=== PATIENT | female | born 1990 | race Caucasian/White ===

== ENCOUNTER 2020-06-02 08:00 | Outpatient (CLI) | payer OTHER ==
[2020-06-02 21:42] LABS: TRICHOMONAS VAGINALIS DNA NEGATIVE (NEGATIVE)
== END 2020-06-02 23:59 | disposition home or self-care (01) ==
LOC: LAB.R 08:00
PROVIDERS: ATTEND Obstetrics & Gynecology
DX: Z11.3 Encounter for screening for infections with a predominantly sexual mode of transmission (principal)
CPT/HCPCS: 87491; 87591; 87661

== ENCOUNTER 2020-06-12 14:55 | Outpatient (CLI) | payer OTHER ==
--- NOTE | 2020-06-12 17:04 | Ultrasound Report ---
PROCEDURE: OB F/U or Repeat INDICATIONS: SCREENING FOR MACROSOMIA OUTSIDE/PRIOR DATING DATA: Last menstrual period (LMP): 10/13/2019. LMP-based estimated date of delivery (MELISSA): 07/19/2020. First dating scan (date and location): 01/03/2020. Estimated date of delivery (MELISSA) given by the ordering provider.: 07/20/2020. This is based on IVF da ting. TECHNIQUE: Real-time scanning was performed of the fetus, with image documentation and biometric measurements. COMPARISON: OB ultrasound report only dated 03/01/2020, FINDINGS: General: A single living intrauterine gestation is present. Presentation: Vertex Placenta: Placental position is fundal, without previa. Amniotic fluid index: 29.6 cm, 99th percentile for gestational age. Largest pocket 9.2 cm. heart rate: 133 beats per minute. Maternal cervical canal: 5 cm long; normal length is 2.5 cm or more. biometrics: Biparietal diameter: 8.7 cm 35 weeks 2 days Head circumference: 31.0 cm 34 weeks 5 days Abdominal circumference: 33.1 cm 37 weeks 0 days Femur length: 6.4 cm 33 weeks 1 day Estimated gestational age from initial scan: 34 weeks 4 days Composite gestational age from present scan: 35 weeks 0 days Estimated weight and percentile: 2735 g 77th percentile Measurement variability in biometric dating: +/- 10 days from 12-20 weeks gestation, +/- 2 weeks from 20-30 weeks gestation, +/- 3 weeks at 30 weeks gestation or more. Other: Not applicable. IMPRESSION: 1. Single live and interpreted with ultrasound gestational age today of 35 weeks 0 days compared to 3 4 weeks 4 days based on prior exams. 2. CARMEN is at the 99th percentile. 3. weight is noted at the 77th percentile. Reviewed by: Fifi Dowling MD on 06/12/2020 5:03 PM PST Approved by: Fifi Dowling MD on 06/12/2020 5:03 PM PST Station ID: [id number]
== END 2020-06-12 14:56 | disposition home or self-care (01) ==
LOC: DI 14:55
PROVIDERS: ATTEND Obstetrics & Gynecology
DX: Z36.88 Encounter for antenatal screening for fetal macrosomia (principal)

== ENCOUNTER 2020-06-22 07:00 | Outpatient (CLI) | payer OTHER | END 2020-06-22 23:59 | disposition home or self-care (01) | LOC: LAB.R 07:00 | PROVIDERS: ATTEND Obstetrics & Gynecology | DX: Z36.85 Encounter for antenatal screening for Streptococcus B (principal) | CPT/HCPCS: 87797 ==

== ENCOUNTER 2020-07-06 08:00 | Outpatient (CLI) | payer OTHER ==
[2020-07-06 21:17] LABS: TRICHOMONAS VAGINALIS DNA NEGATIVE (NEGATIVE)
== END 2020-07-06 23:59 | disposition home or self-care (01) ==
LOC: LAB.R 08:00
PROVIDERS: ATTEND Obstetrics & Gynecology
DX: Z11.3 Encounter for screening for infections with a predominantly sexual mode of transmission (principal)
CPT/HCPCS: 87491; 87591; 87661

== ENCOUNTER 2020-07-09 13:26 | Inpatient (IN) | payer OTHER ==
[2020-07-09 14:15] LABS: RUPTURE OF MEMBRANES PLUS POSITIVE (NEGATIVE)
[2020-07-09] MEDS ORDERED: miSOPROStoL 200 MCG TABLET BC PRN (15:15)
[2020-07-09] MEDS ORDERED: OXYTOCIN/SODIUM CHLORIDE 500 ML IV PRN (15:15)
[2020-07-09] MEDS ORDERED: OXYTOCIN 10 UNIT/ML VIAL IM PRN (15:15)
[2020-07-09] MEDS ORDERED: LIDOCAINE-MPF 1% 30 ML VIAL ID PRN (15:15)
[2020-07-09] MEDS ORDERED: CARBOPROST TROMETHAMINE 250 MCG/ML AMP IM PRN (15:15)
[2020-07-09] MEDS ORDERED: AMPICILLIN 2 GM in SODIUM CHLORIDE 0.9% MINIBAG 100 ML IV ONE (15:15)
[2020-07-09] MEDS ORDERED: TRANEXAMIC ACID IN NACL 1,000 MG/100 ML BAG IV PRN (15:15)
[2020-07-09] MEDS ORDERED: METHYLERGONOVINE 0.2 MG/ML VIAL IM PRN (15:15)
[2020-07-09] MEDS ORDERED: CITRIC ACID/SODIUM CITRATE 15 ML UDC PO ONE (15:21)
[2020-07-09] MEDS ORDERED: ceFAZolin 2 GM/50 ML 2 GM/50 ML BAG IV SCH (15:22)
[2020-07-09] MEDS ORDERED: HYDROmorphone 0.5 MG/0.5 ML SYRINGE IVP PRN (15:23)
[2020-07-09] MEDS ORDERED: ATROPINE ABBOJECT 1 MG/10 ML SYRINGE IVP PRN (15:23)
[2020-07-09] MEDS ORDERED: NALOXONE 0.4 MG/ML VIAL IVP PRN (15:23)
[2020-07-09] MEDS ORDERED: ONDANSETRON 4 MG/2 ML VIAL IVP PRN (15:23)
[2020-07-09] MEDS ORDERED: ePHEDrine 50 MG/ML VIAL IVP PRN (15:23)
[2020-07-09] MEDS ORDERED: fentaNYL 100 MCG/2 ML VIAL IVP PRN (15:23)
[2020-07-09] MEDS ORDERED: MORPHINE 2 MG/ML CARPUJECT IVP PRN (15:23)
--- NOTE | 2020-07-09 15:23 | ANESTHESIA ---
Pre-Anesthesia VS, & Labs - Diagnosis previous csection - Procedure csection Vital Signs: Temp Pulse Resp BP Pulse Ox 37.1 C 98 16 110/73 100 07/09/20 14:58 07/09/20 14:58 07/09/20 14:58 07/09/20 14:58 07/09/20 13:30 Height: 5 ft 5 in Weight (kg): 88.451 kg Body Mass Index: 32.4 BMI Classification: Obese - NPO Other (PBJ sandwich at 1300) - Is Patient ?: Yes Home Medications and Allergies Letrozole 12/11/15 Pnv95/Iron Fum/Folic Acid [ Caplet] 12/11/15 Sertraline HCl [Zoloft] 100 mg PO DAILY 12/11/15 Allergies/Adverse Reactions: Allergies Allergy/AdvReac Type Severity Reaction Status Date / Time No Known Drug Allergies Allergy Verified 12/11/15 18:02 Anes History & Medical History - Anesthetic History Family history of Anesthesia Complications: Denies Family history of Malignant Hyperthermia: Denies - Medical History Cardiovascular: reports: None Pulmonary: reports: None Gastrointestinal: reports: None Urinary: reports: None Neuro: reports: None Musculoskeletal: reports: None Blood Disorders: reports: None Skin: reports: None Smoking Status: Never smoker Psychosocial: reports: No issues indicated Exam General: Alert, Oriented x3, Cooperative Dental: WNL Mouth Openin Fingerbreadth Neck Mobility: Normal Mallampati classification: II Thyromental Distance: 4-6 cm Respiratory: Lungs clear Cardiovascular: Regular rate Abdomen: Normal bowel sounds Extremities: No clubbing Neurological: Normal gait Mental/Cognitive Status: Alert/Oriented X3 Cognitive Status: Within normal limits Plan Anesthesia Type: Spinal, Transverse Abdominis Plane (TAP) Block Regional Block: Per Surgeon's request for Post Op pain control Consent for Procedure(s) Verified and Reviewed: Yes Code Status: Attempt Resuscitation ASA classification: 2-Mild systemic disease Is this case an emergency?: Yes
[2020-07-09 15:29] LABS: BASOPHILS % (AUTO) 0.3 %; EOSINOPHILS # (AUTO) 0.3 10^3/uL (0.0-0.7); EOSINOPHILS % (AUTO) 2.9 %; HCT - HEMATOCRIT 38.6 % (37.0-47.0); HGB - HEMOGLOBIN 12.8 g/dL (12.0-16.0); LYMPHOCYTES % (AUTO) 18.2 %; MEAN CORPUSCULAR HEMOGLOBIN 29.5 pg (27.0-31.0); MEAN CORPUSCULAR HGB CONC 33.2 g/dL (32.0-36.0); MEAN CORPUSCULAR VOLUME 88.9 fL (81.0-99.0); MONOCYTES # (AUTO) 0.8 10^3/uL (0.0-1.0); MONOCYTES % (AUTO) 7.2 %; NEUTROPHILS # (AUTO) 7.8 10^3/uL (1.5-6.6); PLT - PLATELET COUNT 172 10^3/uL (130-450); RED BLOOD COUNT 4.34 10^6/uL (4.20-5.40); RED CELL DISTRIBUTION WIDTH 13.4 % (12.0-15.0); WHITE BLOOD COUNT 11.1 x10^3/uL (4.8-10.8)
[2020-07-09] MEDS ORDERED: fentaNYL 100 MCG/2 ML VIAL ONE (15:39)
[2020-07-09] MEDS ORDERED: ONDANSETRON 4 MG/2 ML VIAL ONE (15:40)
[2020-07-09] MEDS ORDERED: ROPIVACAINE 0.5% PF 20 ML AMPULE ONE (15:40)
[2020-07-09] MEDS ORDERED: OXYTOCIN 10 UNIT/ML VIAL ONE (15:40)
[2020-07-09] MEDS ORDERED: SODIUM CHLORIDE 0.9% 20 ML ONE (15:40)
[2020-07-09] MEDS ORDERED: DEXAMETHASONE 4 MG/ML VIAL ONE (15:40)
[2020-07-09] MEDS ORDERED: ceFAZolin 1 GM VIAL ONE (15:40)
[2020-07-09] MEDS ORDERED: LACTATED RINGERS 1,000 ML IV SCH ×3 (16:00→18:00)
[2020-07-09] MEDS ORDERED: SODIUM CHLORIDE 0.9% 10 ML ONE (17:19)
[2020-07-09] MEDS ORDERED: SODIUM CHLORIDE FLUSH 0.9% 10 ML SYRINGE IVP PRN (17:45)
[2020-07-09] MEDS ORDERED: diphenhydrAMINE 25 MG CAPSULE PO PRN (17:45)
--- NOTE | 2020-07-09 17:51 | OPERATIVE REPORT ---
Operative Report - General Admit Date: 07/09/20 Procedure Date: 07/09/20 Planned Procedure: RLTC/S Pre-Op Diagnosis: PRIOR LTC/S 38 WEEKS, SROM Procedure Performed: RLTC/S Post Op Diagnosis: PRIOR LTC/S, 38 WEEKS, SROM, MILD MECH, PRESENTING CORD - Procedure Note Primary Surgeon: Nawaf Marte MD Secondary Surgeon: Mayte SHEIKH Anesthesia Provider: Verenice Fortune CRNA Anesthesia Technique: Spinal Pathology: Placenta IV Fluids (mL): 2,000 Estimated Blood Loss (mL): 1,000 Urine Output (mL): 300
[2020-07-09] MEDS ORDERED: LACTATED RINGERS 1,000 ML IV ONE (17:55)
--- NOTE | 2020-07-09 18:17 | ANESTHESIA POST OP EVALUATION ---
Anesthesia Post Eval - Post Anesthesia Eval Vitals: Last Vital Signs Temp 36.5 C 07/09/20 18:15 Pulse 77 07/09/20 18:15 Resp 15 07/09/20 18:15 BP 119/102 H 07/09/20 18:15 Pulse Ox 100 07/09/20 18:15 CV Function Including HR & BP: positive: Stable Pain Control: positive: Satisfactory Nausea & Vomiting: positive: Negative Mental Status: positive: Baseline Respiratory Status: Airway Patent Hydration Status: Satisfactory Anesthesia Complications: positive: None
[2020-07-09] MEDS: KETOROLAC 30 MG/ML VIAL IVP SCH (19:06)
--- NOTE | 2020-07-09 19:36 | PREOP HISTORY & PHYSICAL ---
DATE OF SERVICE: 07/09/2020 Physician: Nawaf Marte MD IDENTIFICATION: The patient is a 30-year-old G5, P1, SAB 3 female whose EDC is 07/20/2020; this was determined by early ultrasound, as well as IVF. CHIEF COMPLAINT: Spontaneous rupture of membranes. HISTORY OF PRESENT ILLNESS: The patient was at home when she spontaneously ruptured roughly 1 hour a go. Amniotic fluid was clear. She presented to labor and delivery, at which time a ROM Plus was per formed, which was noted to be positive. Of significance is the fact that she is GBS positive. She i s having contractions, but does not appear to be laboring well. Her first section was perfo rmed for what appears to be nonreassuring heart tones. This is an IVF . She has had 3 p revious IVF miscarriages. Her OB care, started at [facility]. She transferred to us at 33 weeks EGA. The remainder of her course has been unremarkable. She is scheduled for th is coming week. LABORATORY STUDIES: The patient's 50 gram Glucola was 121. She is A positive. Her rubella is immune . Her STI check was positive at one time and had a test of cure, which was noted to be negative. Sh e shows no evidence of any other STIs. She is group B strep positive. PAST MEDICAL HISTORY: Remarkable for anxiety, depression, and endometriosis as well as infertility. PAST SURGICAL HISTORY: section in 2018. Dilatation and curettage and laparoscopy in 2016. SOCIAL HISTORY: The patient works as a school resource officer. She is to an active duty [place] person . FAMILY HISTORY: Positive for diabetes, hypertension, alcoholism, and CVA as well as cancer. ALLERGIES: NONE KNOWN. CURRENT MEDICATIONS: vitamins. PHYSICAL EXAMINATION GENERAL: The patient is a well-developed, well-nourished female. She is in no acute distress at thi s time. VITAL SIGNS: On admission shows her blood pressure to be 110/73, respirations 16, and temperature 37 .1. HEENT: Pupils equally round. Extraocular muscles intact. NECK: Thyroid is not palpably enlarged. HEART: Regular rate and rhythm without murmurs. LUNGS: Lung cohen are clear without rales or wheezes. BACK: No spinal or CVA tenderness noted. ABDOMEN: Gravid, nontender. She is having periodic contractions with reassuring heart test. She has had a ROM Plus which was positive. PELVIC: Intentionally deferred to decrease the risk of introducing in a group B strep to the amnioti c fluid. EXTREMITIES: DTRs are +1. IMPRESSION 1. A 30-year-old in vitro fertilization (IVF) fetus at 38 weeks 3 days. 2. Spontaneous rupture of membranes. 3. Previous section. PLAN: Will perform repeat low-transverse section. Will administer ampicillin to decrease t he risk of GBS transplant to the . Will also administer Ancef preoperatively. Risks and benef its have been explained to the patient including those, but not limited to bleeding, infection, injur y to pelvic organs, which include the uterus, tubes, ovaries, bowel, bladder and ureters. She is de re of the potential for DVT with PE as well as postoperative adhesions, which could cause pain, bowel obstruction, and infertility. TD: 07/09/2020 15:30
[2020-07-09] MEDS: ACETAMINOPHEN 500 MG TABLET PO SCH (19:37)
[2020-07-09] MEDS: oxyCODONE 5 MG TABLET PO PRN ×3 (19:38→23:43)
[2020-07-09] MEDS: DOCUSATE SODIUM 100 MG CAPSULE PO SCH (20:25)
[2020-07-09] MEDS: HYDROmorphone 1 MG/ML CARPUJECT IVP PRN ×2 (21:11→23:07)
--- NOTE | 2020-07-09 22:18 | PROVIDER PROGRESS NOTE ---
Subjective - Prog Note Date Prog Note Date: 07/09/20 Prog Note Time: 22:14 - Subjective Pt reports feeling: Improved (Pt C/O significant sharp right incisionsl pain. hes taken 10 mg oxy codone and IV dliudid.) Objective - Vital Signs/Intake & Output Reviewed Vital Signs: Yes Vital Signs: Vital Signs x48h Temp Pulse Pulse Resp BP BP Pulse Ox 07/09/20 21:33 77 18 124/54 L 100 07/09/20 20:34 36.9 C 70 18 121/73 100 07/09/20 19:30 36.4 C L 61 18 91/54 L 100 07/09/20 19:15 36.4 C L 69 18 119/62 98 07/09/20 18:50 36.6 C 72 16 119/58 L 99 07/09/20 18:20 36.5 C 70 14 98/70 100 07/09/20 18:17 121/68 07/09/20 18:15 36.5 C 77 15 119/102 H 100 07/09/20 18:10 36.5 C 71 15 119/102 H 100 07/09/20 18:05 36.2 C L 69 21 104/68 100 07/09/20 18:00 36.2 C L 73 20 83/70 L 100 07/09/20 17:53 36.2 C L 72 21 100/88 H 100 07/09/20 14:58 37.1 C 98 16 110/73 Intake & Output: Intake & Output 07/06/20 07/07/20 07/08/20 07/09/20 23:59 23:59 23:59 23:59 Intake Total 400 Output Total 1355 Balance -955 - Objective Abdomen: positive: Tenderness (at the right end of the incisuon. reviewed the indicastion for a wound vac. Pt wants it removed. Wound vac removed in a steril fassion. steristrips applied and then a telfa. pressure dresssing applied. Pt notes a marked reduction in her pain.) - Lab Results Fish Bones: 07/09/20 15:00 Other Labs: Lab Results x24hrs 07/09/20 07/09/20 07/09/20 Range/Units 15:00 15:00 13:54 WBC 11.1 H (4.8-10.8) x10^3/uL RBC 4.34 (4.20-5.40) 10^6/uL Hgb 12.8 (12.0-16.0) g/dL Hct 38.6 (37.0-47.0) % MCV 88.9 (81.0-99.0) fL MCH 29.5 (27.0-31.0) pg MCHC 33.2 (32.0-36.0) g/dL RDW 13.4 (12.0-15.0) % Plt Count 172 (130-450) 10^3/uL MPV 11.0 H (7.9-10.8) fL Neut # (Auto) 7.8 H (1.5-6.6) 10^3/uL Lymph # (Auto) 2.0 (1.5-3.5) 10^3/uL [place] # (Auto) 0.8 (0.0-1.0) 10^3/uL Eos # (Auto) 0.3 (0.0-0.7) 10^3/uL Baso # (Auto) 0.0 (0.0-0.1) 10^3/uL Absolute Nucleated RBC 0.00 x10^3/uL Nucleated RBC % 0.0 /100WBC Membranes Rupture POSITIVE A (NEGATIVE) Blood Type A POSITIVE Antibody Screen NEGATIVE Assessment/Plan - Problem List (1) section wound complication Impression: wound pain . wound vac removed. pressure dressing applied.
[2020-07-09] MEDS: SIMETHICONE CHEW 80 MG TABLET PO SCH (23:43)
[2020-07-10] MEDS ORDERED: SODIUM CHLORIDE FLUSH 0.9% 10 ML SYRINGE IVP SCH (01:00)
[2020-07-10] MEDS: KETOROLAC 30 MG/ML VIAL IVP SCH ×3 (01:07→13:20)
[2020-07-10] MEDS: ACETAMINOPHEN 500 MG TABLET PO SCH ×3 (02:48→19:39)
[2020-07-10] MEDS: HYDROmorphone 1 MG/ML CARPUJECT IVP PRN (02:53)
[2020-07-10] MEDS: oxyCODONE 5 MG TABLET PO PRN ×5 (04:37→21:00)
[2020-07-10] MEDS: SODIUM CHLORIDE FLUSH 0.9% 10 ML SYRINGE IVP SCH ×3 (05:00→13:20)
[2020-07-10 05:20] LABS: BASOPHILS # (AUTO) 0.1 10^3/uL (0.0-0.1); BASOPHILS % (AUTO) 0.3 %; EOSINOPHILS # (AUTO) 0.1 10^3/uL (0.0-0.7); EOSINOPHILS % (AUTO) 0.3 %; HCT - HEMATOCRIT 33.1 % (37.0-47.0); HGB - HEMOGLOBIN 11.3 g/dL (12.0-16.0); LYMPHOCYTES % (AUTO) 10.9 %; MEAN CORPUSCULAR HEMOGLOBIN 30.6 pg (27.0-31.0); MEAN CORPUSCULAR HGB CONC 34.1 g/dL (32.0-36.0); MEAN CORPUSCULAR VOLUME 89.7 fL (81.0-99.0); MEAN PLATELET VOLUME 10.8 fL (7.9-10.8); MONOCYTES # (AUTO) 1.2 10^3/uL (0.0-1.0); MONOCYTES % (AUTO) 6.4 %; NEUTROPHILS # (AUTO) 14.8 10^3/uL (1.5-6.6); NEUTROPHILS % (AUTO) 80.4 %; PLT - PLATELET COUNT 181 10^3/uL (130-450); RED BLOOD COUNT 3.69 10^6/uL (4.20-5.40); RED CELL DISTRIBUTION WIDTH 13.2 % (12.0-15.0); WHITE BLOOD COUNT 18.4 x10^3/uL (4.8-10.8)
[2020-07-10] MEDS: SODIUM CHLORIDE FLUSH 0.9% 10 ML SYRINGE IVP PRN ×2 (07:14→13:20)
--- NOTE | 2020-07-10 07:27 | PROVIDER PROGRESS NOTE ---
Subjective - General Admit Date: 07/09/20 Procedure Date: 07/09/20 Post Op Days: 1 Procedure Performed: RLTC/S - Review of Systems Wound/Incisions: positive: Dressing dry and intact (Pressure dressing) Objective - Patient Data Reviewed Vital Signs: Yes Vital Signs: Vital Signs x48h Temp Pulse Resp BP Pulse Ox 07/10/20 02:00 36.7 C 88 18 125/76 96 Weight: Weight 07/08/20 07/09/20 07/10/20 23:59 23:59 23:59 Weight (kg) 88.451 kg Intake & Output: Intake and Output Totals x24h 07/08/20 07/09/20 07/10/20 23:59 23:59 23:59 Intake Total 500 200 Output Total 1705 1850 Balance -1205 1650 - Lab Results Lab Results: 07/10/20 05:15 Other Lab Results: Lab Results x24hrs 07/10/20 07/09/20 07/09/20 Range/Units 05:15 15:00 15:00 WBC 18.4 H 11.1 H (4.8-10.8) x10^3/uL RBC 3.69 L 4.34 (4.20-5.40) 10^6/uL Hgb 11.3 L 12.8 (12.0-16.0) g/dL Hct 33.1 L 38.6 (37.0-47.0) % MCV 89.7 88.9 (81.0-99.0) fL MCH 30.6 29.5 (27.0-31.0) pg MCHC 34.1 33.2 (32.0-36.0) g/dL RDW 13.2 13.4 (12.0-15.0) % Plt Count 181 172 (130-450) 10^3/uL MPV 10.8 11.0 H (7.9-10.8) fL Neut # (Auto) 14.8 H 7.8 H (1.5-6.6) 10^3/uL Lymph # (Auto) 2.0 2.0 (1.5-3.5) 10^3/uL [place] # (Auto) 1.2 H 0.8 (0.0-1.0) 10^3/uL Eos # (Auto) 0.1 0.3 (0.0-0.7) 10^3/uL Baso # (Auto) 0.1 0.0 (0.0-0.1) 10^3/uL Absolute Nucleated RBC 0.00 0.00 x10^3/uL Nucleated RBC % 0.0 0.0 /100WBC Membranes Rupture (NEGATIVE) Blood Type A POSITIVE Antibody Screen NEGATIVE 07/09/20 Range/Units 13:54 WBC (4.8-10.8) x10^3/uL RBC (4.20-5.40) 10^6/uL Hgb (12.0-16.0) g/dL Hct (37.0-47.0) % MCV (81.0-99.0) fL MCH (27.0-31.0) pg MCHC (32.0-36.0) g/dL RDW (12.0-15.0) % Plt Count (130-450) 10^3/uL MPV (7.9-10.8) fL Neut # (Auto) (1.5-6.6) 10^3/uL Lymph # (Auto) (1.5-3.5) 10^3/uL [place] # (Auto) (0.0-1.0) 10^3/uL Eos # (Auto) (0.0-0.7) 10^3/uL Baso # (Auto) (0.0-0.1) 10^3/uL Absolute Nucleated RBC x10^3/uL Nucleated RBC % /100WBC Membranes Rupture POSITIVE A (NEGATIVE) Blood Type Antibody Screen - Current Medications Current Medications: Current Medications Generic Name Dose Route Start Last Admin Trade Name Freq PRN Reason Stop Dose Admin Acetaminophen 1,000 mg 07/09/20 18:00 07/10/20 02:48 Acetaminophen 500 Mg Tablet PO 1,000 mg Q8H RUTHANN Administration Docusate Sodium 100 mg 07/09/20 21:00 07/09/20 20:25 Docusate Sodium 100 Mg Capsule PO 100 mg BID RUTHANN Administration Hydromorphone HCl 0.5 mg 07/09/20 21:04 07/10/20 02:53 Hydromorphone 1 Mg/Ml Carpuject IVP 0.5 mg Q2HR PRN Administration PAIN Lactated Ringer's 1,000 mls @ 150 mls/hr 07/09/20 16:00 07/09/20 15:34 Lr IV 150 mls/hr .Q6H40M RUTHANN Administration Ketorolac Tromethamine 30 mg 07/09/20 18:00 07/10/20 07:13 Ketorolac 30 Mg/Ml Vial IVP 07/10/20 12:01 30 mg Q6H RUTHANN Administration Oxycodone HCl 5 mg 07/09/20 17:45 07/09/20 20:24 Oxycodone 5 Mg Tablet PO 5 mg Q4HR PRN Administration PAIN Oxycodone HCl 10 mg 07/09/20 20:16 07/10/20 04:37 Oxycodone 5 Mg Tablet PO 10 mg Q4HR PRN Administration PAIN Simethicone 80 mg 07/09/20 22:00 07/09/20 23:43 Simethicone Chew 80 Mg Tablet PO 80 mg TID RUTHANN Administration Sodium Chloride 10 ml 07/09/20 15:15 07/10/20 07:14 Sodium Chloride Flush 0.9% 10 Ml Syringe IVP 10 ml PRN PRN Administration NEEDED PER PROVIDER ORDERS Sodium Chloride 10 ml 07/09/20 17:00 07/10/20 05:00 Sodium Chloride Flush 0.9% 10 Ml Syringe IVP 10 ml 0100,0900,1700 [facility] Administration - Physical Exam Wound/Incisions: positive: Dressing dry and intact General Appearance: positive: Moderate distress (Pain 6/10. just recieved toradol) Respiratory: positive: Chest non-tender, No respiratory distress, Breath sounds nml Cardiovascular: positive: Regular rate & rhythm, No murmur, No gallop Abdomen: positive: Nml bowel sounds, No distention Back: negative: CVA tenderness (R), CVA tenderness (L) Extremities: negative: Calf tenderness, Ange's sign/cords Neurologic/Psychiatric: positive: Oriented x3 Impression/Plan - Problem List Problem List: S/P RLTC/S Hgb normal Elivated WBC Moise out Ambulate repeat cbc
--- NOTE | 2020-07-10 08:06 | OPERATIVE REPORT ---
DATE OF SERVICE: 07/09/2020 Physician: Nawaf Marte MD PREOPERATIVE DIAGNOSES 1. 38 weeks 3 days. 2. Previous section. 3. Spontaneous rupture of membranes. POSTOPERATIVE DIAGNOSES 1. 38 weeks 3 days. 2. Previous section. 3. Spontaneous rupture of membranes. 4. Mild meconium and presenting umbilical cord. PROCEDURE PERFORMED: Repeat low transverse section. SURGEON: Nawaf Marte MD LIBRARY AIDE: KORI Pride. ANESTHESIA PROVIDER: Josiah Fortune CRNA ANESTHETIC: Spinal with transverse abdominis plane block. IV FLUIDS: 2000 mL ESTIMATED BLOOD LOSS: 1000 mL URINE OUTPUT: 300 mL FINDINGS: Upon entering the abdominal cavity, there was evidence of significant adhesions from previous section. At time of incising the uterus, there was evidence of thin meconium noted. The was noted to be vertex presentation; however, there was evidence of the cord presenting before the head. The placenta was very adherent to the endometrial cavity, particularly on the right cornual area. It had to be manually removed. PROCEDURE: Following adequate spinal anesthesia, patient was placed in supine position. Moise catheter was then placed under sterile condition. A roll was then placed under the right hip and then she was prepped and draped in the usual fashion. At this point, timeout was performed, at which concerns were addressed. The old Pfannenstiel incision scar was excised. The incision was carried down to the fascia, which was incised transversely and extended laterally utilizing Michel scissors. The fascia was then both bluntly and sharply dissected from the rectus abdominis. The rectus had previously been reapproximated, it was tightly adherent to itself. The rectus was split high. Care was taken to avoid any injury to bowel or bladder. The peritoneum was also entered bluntly high, and then the rectus was divided the remainder of the way. The peritoneum was then opened in a spread technique. At this point, a bladder retractor was placed and the bladder flap was developed. The lower uterine segment was then incised transversely and then the incision was carried laterally with bandage scissors. Thin meconium was encountered at this time. The was noted to be in the occiput posterior position. The cord was immediately encountered and noted to lie in front of the baby's head. At this point, the head of the was lifted out of the pelvis, delivered with fundal pressure. The was then held for roughly 30 seconds to allow the cord blood to continue to pulsate. Cord was doubly clamped, divided, and the infant was handed to the nursery team that was standing by. At this point, cord blood samples were obtained and then the uterus was exteriorized, wrapped in a moist lap. The placenta was then manually delivered. It was noted to be in the posterior portion of the uterus, but it was very adherent to the right cornual area. This eventually was able to be freed from its attachments. The uterus was cleansed in the internal portion with a dry lap. The incision was then closed using a running locking suture of 0 Vicryl with an imbricating layer of 0 Vicryl. There was a figure of eight used in the midline for hemostasis. There was evidence of good hemostasis at this time. At this point, the uterus was tipped forward. No further clot was removed. The estimated blood loss was made at this time and then the cul-de-sac was irrigated with sterile saline. Uterus was delivered back in the abdominal cavity. The gutters were likewise irrigated with sterile saline. The incision was inspected. No further bleeding was noted. At this point, the peritoneum was closed utilizing 2-0 Vicryl and the rectus was also reapproximated in the lower portion with 2-0 Vicryl. The rectus fascia was then closed utilizing looped 0 PDS and then the subcutaneous tissue hemostasis was obtained utilizing electrocautery and then the fascia was closed utilizing 2-0 Vicryl. The incision itself was closed utilizing 4-0 Monocryl subcuticular. The incision was noted to be free of any bleeding and then a wound VAC was placed without difficulty. The uterus was expressed with minimal to no blood being removed. Sponge and needle counts were correct. During the procedure, Mayte Espino was essential with retraction as well as fundal pressure in the performance of this case. TD: 07/09/2020 18:01 LUIS CARLOS
[2020-07-10] MEDS: SIMETHICONE CHEW 80 MG TABLET PO SCH ×3 (08:25→18:04)
[2020-07-10] MEDS: DOCUSATE SODIUM 100 MG CAPSULE PO SCH ×2 (08:25→20:59)
[2020-07-10] MEDS: IBUPROFEN 600 MG TABLET PO SCH (20:18)
[2020-07-11] MEDS: oxyCODONE 5 MG TABLET PO PRN ×2 (00:56→05:34)
[2020-07-11] MEDS: IBUPROFEN 600 MG TABLET PO SCH (02:24)
[2020-07-11] MEDS: ACETAMINOPHEN 500 MG TABLET PO SCH ×2 (03:40→05:35)
[2020-07-11 05:56] LABS: BASOPHILS # (AUTO) 0.1 10^3/uL (0.0-0.1); BASOPHILS % (AUTO) 0.4 %; EOSINOPHILS # (AUTO) 0.7 10^3/uL (0.0-0.7); EOSINOPHILS % (AUTO) 4.5 %; HCT - HEMATOCRIT 38.6 % (37.0-47.0); HGB - HEMOGLOBIN 12.5 g/dL (12.0-16.0); LYMPHOCYTES # (AUTO) 4.1 10^3/uL (1.5-3.5); LYMPHOCYTES % (AUTO) 27.9 %; MEAN CORPUSCULAR HEMOGLOBIN 29.8 pg (27.0-31.0); MEAN CORPUSCULAR HGB CONC 32.4 g/dL (32.0-36.0); MEAN CORPUSCULAR VOLUME 91.9 fL (81.0-99.0); MEAN PLATELET VOLUME 10.1 fL (7.9-10.8); MONOCYTES # (AUTO) 1.2 10^3/uL (0.0-1.0); MONOCYTES % (AUTO) 8.4 %; NEUTROPHILS # (AUTO) 8.4 10^3/uL (1.5-6.6); NEUTROPHILS % (AUTO) 56.9 %; PLT - PLATELET COUNT 180 10^3/uL (130-450); RED CELL DISTRIBUTION WIDTH 13.6 % (12.0-15.0); WHITE BLOOD COUNT 14.7 x10^3/uL (4.8-10.8)
[2020-07-11 09:49] VITALS: BP 123/70
--- NOTE | 2020-07-11 11:35 | PROVIDER PROGRESS NOTE ---
Subjective - General Admit Date: 07/09/20 Procedure Date: 07/09/20 Post Op Days: 2 Procedure Performed: RLTC/S - Review of Systems Wound/Incisions: positive: Dressing dry and intact General: positive: No symptoms (Pain scale is currently 2 out of 10. She is breast-feeding. Breast milk has not returned at this point.) Objective - Patient Data Reviewed Vital Signs: Yes Vital Signs: Vital Signs x48h Temp Pulse Resp BP Pulse Ox 07/11/20 08:10 36.5 C 79 20 123/70 100 07/11/20 05:41 36.5 C 79 18 118/72 99 Weight: Weight 07/09/20 07/10/20 07/11/20 23:59 23:59 23:59 Weight (kg) 88.451 kg Intake & Output: Intake and Output Totals x24h 07/09/20 07/10/20 07/11/20 23:59 23:59 23:59 Intake Total 500 200 Output Total 1705 2450 Balance -1205 -2250 - Lab Results Lab Results: 07/11/20 05:49 Other Lab Results: Lab Results x24hrs 07/11/20 07/09/20 Range/Units 05:49 20:17 WBC 14.7 H (4.8-10.8) x10^3/uL RBC 4.20 (4.20-5.40) 10^6/uL Hgb 12.5 (12.0-16.0) g/dL Hct 38.6 (37.0-47.0) % MCV 91.9 (81.0-99.0) fL MCH 29.8 (27.0-31.0) pg MCHC 32.4 (32.0-36.0) g/dL RDW 13.6 (12.0-15.0) % Plt Count 180 (130-450) 10^3/uL MPV 10.1 (7.9-10.8) fL Neut # (Auto) 8.4 H (1.5-6.6) 10^3/uL Lymph # (Auto) 4.1 H (1.5-3.5) 10^3/uL [place] # (Auto) 1.2 H (0.0-1.0) 10^3/uL Eos # (Auto) 0.7 (0.0-0.7) 10^3/uL Baso # (Auto) 0.1 (0.0-0.1) 10^3/uL Absolute Nucleated RBC 0.00 x10^3/uL Nucleated RBC % 0.0 /100WBC Coronavirus (PCR) NEGATIVE - Current Medications Current Medications: Current Medications Generic Name Dose Route Start Last Admin Trade Name Freq PRN Reason Stop Dose Admin Acetaminophen 1,000 mg 07/09/20 18:00 07/11/20 05:35 Acetaminophen 500 Mg Tablet PO 1,000 mg Q8H RUTHANN Administration Docusate Sodium 100 mg 07/09/20 21:00 07/10/20 20:59 Docusate Sodium 100 Mg Capsule PO 100 mg BID RUTHANN Administration Hydromorphone HCl 0.5 mg 07/09/20 21:04 07/10/20 02:53 Hydromorphone 1 Mg/Ml Carpuject IVP 0.5 mg Q2HR PRN Administration PAIN Ibuprofen 600 mg 07/10/20 20:00 07/11/20 02:24 Ibuprofen 600 Mg Tablet PO 600 mg Q6HR RUTHANN Administration Oxycodone HCl 5 mg 07/09/20 17:45 07/09/20 20:24 Oxycodone 5 Mg Tablet PO 5 mg Q4HR PRN Administration PAIN Oxycodone HCl 10 mg 07/09/20 20:16 07/11/20 05:34 Oxycodone 5 Mg Tablet PO 10 mg Q4HR PRN Administration PAIN Simethicone 80 mg 07/09/20 22:00 07/10/20 18:04 Simethicone Chew 80 Mg Tablet PO 80 mg TID RUTHANN Administration Sodium Chloride 10 ml 07/09/20 15:15 07/10/20 13:20 Sodium Chloride Flush 0.9% 10 Ml Syringe IVP 10 ml PRN PRN Administration NEEDED PER PROVIDER ORDERS Sodium Chloride 10 ml 07/09/20 17:00 07/10/20 13:20 Sodium Chloride Flush 0.9% 10 Ml Syringe IVP 10 ml 0100,0900,1700 RUTHANN Administration - Physical Exam Wound/Incisions: positive: Healing well, No drainage General Appearance: positive: No acute distress, Alert Respiratory: positive: Chest non-tender, No respiratory distress, Breath sounds nml Cardiovascular: positive: Regular rate & rhythm, No murmur, No gallop Abdomen: positive: Non-tender, No organomegaly, Nml bowel sounds Back: negative: CVA tenderness (R), CVA tenderness (L) Extremities: negative: Calf tenderness, Ange's sign/cords Neurologic/Psychiatric: positive: Oriented x3 Impression/Plan - Problem List Problem List: Postop day #1 excellent progress Discussed breast-feeding, and mastitis. Reviewed bleeding and signs of infection. Discharge medications: oxycodone 5 mg #20 Motrin 800 mg Colace 100 mg Return to clinic in 1 week.
--- NOTE | 2020-07-11 12:01 | DISCHARGE SUMMARY ---
Physician: Nawaf Marte MD DATE OF ADMISSION: 07/09/2020 DATE OF DISCHARGE: 07/11/2020 ADMITTING DIAGNOSES: 1. A 30-year-old G5, P1, female who is 38 weeks estimated gestational age. 2. Spontaneous rupture of membranes. 3. Previous section. PROCEDURE: Repeat low-transverse section. PRESENTING HISTORY: Patient is a 30-year-old G5, P1 female who conceived on IVF. Her due date was e stablished by early visits as well as ultrasound. She had her initial care done at the [facility] and humphreis sferred at roughly 33 weeks. Her course has been remarkable in that she is a previous IVF. She also was positive GBS. LABORATORIES: CBC on admission showed a white count of 11.1. Her hemoglobin was 12.8, hematocrit wa s 38.6. Her platelets were 172. Postoperative day #1, her white count was 18.4, hemoglobin was 11.3 , hematocrit was 33.1, and her platelets were 181. The date of discharge, her white count has come d own to 14.7, hemoglobin was 12.5, hematocrit was 38.6, and platelets were 180. HOSPITAL COURSE: Patient presented to labor and delivery with rupture of membranes documented with R OM plus. Because of her being group B strep positive, she immediately received 2 grams of ampicillin . She was set up and taken to the operating room, and prior to the procedure she had 3 grams of Ance f. The procedure was performed without incident. Of interest was the fact that she had 2 liters of fluid collected at time of delivery. This was felt to somewhat be amniotic fluid. However, her ana mated blood loss was roughly a liter. Her course was significant in that she had some rig ht lower quadrant incisional pain. She requested the wound VAC be removed. This was done. She stat ed her pain remarkably improved. She is performing well at this time. She is eating a regular diet. She is passing flatus. She is voiding. She is . DISCHARGE MEDICATIONS: Oxycodone 5 mg #20, Motrin 800 mg #30, Colace 100 mg #30. DISCHARGE INSTRUCTIONS: She is instructed to follow up in the clinic in 1 week. We have also discus sed the issue of as well as signs and symptoms of infection. TD: 07/11/2020 11:45
--- NOTE | 2020-07-11 13:56 | Labor Flowsheet ---
Labor Flowsheet Datetime Report Generated by CPN: 07/11/2020 13:56 Datetime: 07/09/2020 18:14 VAGINAL EXAM Membranes Ruptured Date/Time: 07/09/2020 12:00
== END 2020-07-11 13:15 | disposition home or self-care (01) | DRG 788 ==
LOC: WFO 13:26 → FBP 13:44 → WFO 15:15
PROVIDERS: ADMIT Obstetrics & Gynecology; ATTEND Obstetrics & Gynecology
PROC: 10D00Z1 Extraction of Products of Conception, Low, Open Approach (ICD-10-PCS; principal; 2020-07-09 15:00)
DX: O42.02 Full-term premature rupture of membranes, onset of labor within 24 hours of rupture (principal); O99.824 Streptococcus B carrier state complicating childbirth; O34.211 Maternal care for low transverse scar from previous cesarean delivery; O77.0 Labor and delivery complicated by meconium in amniotic fluid; Z37.0 Single live birth; O73.0 Retained placenta without hemorrhage; O32.8XX0 Maternal care for other malpresentation of fetus, not applicable or unspecified; O69.0XX0 Labor and delivery complicated by prolapse of cord, not applicable or unspecified; O90.89 Other complications of the puerperium, not elsewhere classified; G89.18 Other acute postprocedural pain; Z3A.38 38 weeks gestation of pregnancy; Z20.822 Contact with and (suspected) exposure to COVID-19; Z87.59 Personal history of other complications of pregnancy, childbirth and the puerperium
CPT/HCPCS: 36415; 84112; 85025; 86850; 86900; 86901; 87635; 99213; A9270; J1170; J7120

== ENCOUNTER 2020-08-22 13:52 | Outpatient (CLI) | payer OTHER | END 2020-08-22 13:53 | disposition home or self-care (01) | LOC: LAB 13:52 | PROVIDERS: ATTEND Obstetrics & Gynecology | DX: O72.1 Other immediate postpartum hemorrhage (principal) | CPT/HCPCS: 36415; 84702 ==

== ENCOUNTER 2020-08-28 13:11 | Outpatient (CLI) | payer OTHER ==
--- NOTE | 2020-08-28 15:27 | Ultrasound Report ---
PROCEDURE: Pelvic w/Transvaginal INDICATIONS: RETAINED PRODUCTS OF CONCEPTION, CARE TECHNIQUE: Real-time scanning was performed of the pelvic organs, with image documentation. Additional endovagi nal scanning was necessary due to incomplete visualization of the adnexal and endometrial structures by transabdominal scanning. COMPARISON: None. FINDINGS: The uterus measures 5.0 x 6.1 x 8.3 cm. The uterus contains nonvascular heterogeneously hyperechoic m aterial within the uterine cavity, which is inseparable from the endometrium. This measures approxima tely 3 cm in maximum thickness. This may represent abnormally thickened and heterogenous endometrium, although blood products or retained nonvascular products of conception could appear similar. Left ovary not identified. The right ovary is unremarkable. IMPRESSION: Nonvascular heterogeneously hyperechoic material within the uterine cavity which is inseparable from the endometrium. This may represent truly thickened endometrium versus retained blood products or pro ximal of conception. Reviewed by: Alex Torres MD on 08/28/2020 3:25 PM PDT Approved by: Alex Torres MD on 08/28/2020 3:25 PM PDT Station ID: [id number]
== END 2020-08-28 13:12 | disposition home or self-care (01) ==
LOC: DI 13:11
PROVIDERS: ATTEND Obstetrics & Gynecology
DX: Z39.2 Encounter for routine postpartum follow-up (principal); O02.9 Abnormal product of conception, unspecified

== ENCOUNTER 2020-09-29 15:13 | Outpatient (CLI) | payer OTHER | END 2020-09-29 15:14 | disposition home or self-care (01) | LOC: COV 15:13 | PROVIDERS: ATTEND Obstetrics & Gynecology | DX: Z01.812 Encounter for preprocedural laboratory examination (principal); O02.9 Abnormal product of conception, unspecified; Z20.822 Contact with and (suspected) exposure to COVID-19 ==

== ENCOUNTER 2020-10-03 11:32 | Day surgery (SDC) | payer OTHER ==
--- NOTE | 2020-10-02 15:21 | HISTORY & PHYSICAL EXAMINATION ---
HPI - History of Present Illness HPI Comment/Other: CC: Discuss D&C HPI: Pt is here today to discuss possibly having a D&C procedure ...................................................................STEFFANY Claudio September 27, 2020 1:15 PM The patient is a 33-year-old G5, P2 here for preop assessment for hysteroscopy D&C. Patient was last seen in clinic 08/22/20 for routine pp care. She was having extended vaginal bleeding that seemed heavier than expected. Review of op notes show that there was difficulty rmeoving the placenta as it was adherent to the fundus. She underwent a pelvic us with findings as follows: The uterus measures 5.0 x 6.1 x 8.3 cm. The uterus contains nonvascular heterogeneously hyperechoic material within the uterine cavity, which is inseparable from the endometrium. This measures approximately 3 cm in maximum thickness. This may represent abnormally thickened and heterogenous endometrium, although blood products or retained nonvascular products of conception could appear similar. HCG on 08/22/20 was 4.3, wnl. She continues to have heavy bleeding and is opting for surgical management with hysteroscopy D&C. No changes in health hx other than as noted in HPI. Allergies: No Known Allergies Medications: AZITHROMYCIN 500 MG ORAL TABLET (AZITHROMYCIN) Take 2 tabs by mouth once; Route: ORAL ZOLOFT 100 MG ORAL TABLET (SERTRALINE HCL) Take 200mg daily; Route: ORAL PRE-AYSE FORMULA ORAL TABLET ( [id number]) Take one tablet by mouth once a day; Route: ORAL Problems: Preoperative examination (ICD-V72.84) (DSC69-J86.818) Retained products of conception (ICD-632) (IWB54-A42.9) Care (ICD-V24.0) (GMU78-I16.2) Single liveborn born in hospital by section (ICD-V30.01) (ORC50-Z96.01) Depression (NKI88-O99.8) Anxiety (ICD-300.00) (XKW85-Q66.9) Pelvic peritoneum endometriosis (ICD-617.3) (LRV00-A91.3) Encounter for assisted reproductive fertility procedure cycle (IVF) (ICD-V26.81) (SOV43-Q97.83) Vital Signs: Patient Profile: 30 Years Old Female Height: 65 inches Weight: 168 pounds BMI: 28.06 BP sittin / 67 Cuff size: regular Vitals Entered By: STEFFANY Claudio (September 27, 2020 1:15 PM) Meds Reviewed: Done Allergies Reviewed: Done No known allergies: T Past Medical History: Anxiety Depression Endometriosis Infertility Past Surgical History: (04/23/2018) Dilatation & Curettage Laparoscopies (2016) [facility] Review of Systems ROS Comments: As per HPI, otherwise remaining systems are negative. Physical Psych: GEN: NAD HEAD: NCAT EYES: No scleral icterus or conjunctival injection CV: RRR RESP: CTAB, normal effort ABD: S&NT/ND PSYCH: appropriate affect NEURO: alert and oriented, normal gait and coordination EXT: WWP Impression & Recommendations: Problem # 1: Preoperative examination (ICD-V72.84) (NRI13-V09.818) Orders: PRE OP -[id number] (CPT-[id number]) Reviewed risks/benefits/alternatives to hysteroscopy/polpectomy Risks include, but are not limited to, bleeding, infection, damage to neatby tissue and organs. On average, expected EBL is minimal. In the event of an unanticipated blood loss, patient is willing to undergo transfusion. Risks of blood transfusion include infection as well as transfusion reaction Risk of HIV 1/2million nationwide Risk of Hepatitis 1/1 million Risks of transfusion reaction and mgt reviewed Infection risk low given that no incisions odalis be made and we will be using physiologic orifices. Will provide IV abx in the event of uterine perforation. Damage to nearby tissue and organs was reviewed with emphasis on uterine perforation and management, which can include surgical intervention based on bleeding risk. Reviewed management of complications and efforts to avoid such outcomes but reviewed that they may occur despite our best efforts. Patient agreed to the aforementioned procedure and written informed consent was obtained. Gender ID Identifies as Female P: 2 T: 2 A: 3 SAB: 3 L: 2 Cesareans: 2 LMP: 10/28/2019 EDC: delivered EDC by Ultrasound: 07/17/2020 Height: 65 (08/22/2020 1:12:23 PM) Weight: 168 Chlamydia: NEGATIVE (07/06/2020 12:00:00 PM) Group B: POSITIVE (06/22/2020 11:50:00 AM) US: 13W 5D (03/01/2020 4:13:46 PM) Blood Type: A+ (01/11/2020 3:55:59 PM) RH Type: + (01/11/2020 3:55:59 PM) Last Antibody Screen: Negative (05/01/2020 3:54:06 PM) Chlamydia: NEGATIVE (07/06/2020 12:00:00 PM) HIV: negative (01/11/2020 3:55:51 PM) RPR: negative (01/11/2020 3:55:54 PM) Last Pap: Normal, Satisfactory (07/07/2019 3:47:24 PM) PMH/PSH - Past Medical History Cardiovascular: positive: None Respiratory: positive: None Neuro: positive: None GI: positive: None [facility]: positive: Endometriosis : positive: None Psych: positive: None, Depression, Anxiety, Panic attacks Musculoskeletal: positive: None Derm: positive: None MRSA Hx?: No - Past Surgical History /[facility]: positive: section, Dilation and currettage, Hysterectomy Social & Family Hx - Social History Does the pt smoke?: No Smoking Status: Never smoker Meds/Allgy - Home Medications Home Medications: Ambulatory Orders Medication Instructions Recorded Confirmed Pnv95/Iron Fum/Folic Acid 1 tab PO DAILY 12/11/15 [ Caplet] Sertraline HCl [Zoloft] 200 mg PO DAILY 12/11/15 10/02/20 - Allergies Allergies/Adverse Reactions: Allergies Allergy/AdvReac Type Severity Reaction Status Date / Time No Known Drug Allergies Allergy Verified 12/11/15 18:02
[2020-10-03] MEDS ORDERED: GABAPENTIN 400 MG CAPSULE ONE (11:34)
[2020-10-03] MEDS ORDERED: CELECOXIB 100 MG CAPSULE PO ONE ×2 (11:34→11:36)
[2020-10-03] MEDS ORDERED: ACETAMINOPHEN 1,000 MG/100 ML 100 ML IV ONE (11:35)
[2020-10-03] MEDS ORDERED: BUPIVACAINE 0.5%-EPI 1:200000 PF 30 ML VIAL ONE (11:37)
[2020-10-03] MEDS ORDERED: LACTATED RINGERS 1,000 ML IV ONE ×2 (11:38→13:18)
[2020-10-03 12:06] LABS: HCG UR QUAL NEGATIVE
--- NOTE | 2020-10-03 12:07 | ANESTHESIA ---
Pre-Anesthesia VS, & Labs - Diagnosis abnormal bleeding - Procedure hysteroscopy, D&C Vital Signs: Temp Pulse Resp BP Pulse Ox 36.2 C L 64 14 103/61 99 10/03/20 11:38 10/03/20 11:38 10/03/20 11:38 10/03/20 11:38 10/03/20 11:38 Height: 5 ft 5 in Weight (kg): 75 kg Body Mass Index: 27.5 BMI Classification: Overweight - NPO >8 hours - Is Patient ?: No Home Medications and Allergies Pnv95/Iron Fum/Folic Acid [ Caplet] 1 tab PO DAILY 12/11/15 Sertraline HCl [Zoloft] 200 mg PO DAILY 12/11/15 Allergies/Adverse Reactions: Allergies Allergy/AdvReac Type Severity Reaction Status Date / Time No Known Drug Allergies Allergy Verified 12/11/15 18:02 Anes History & Medical History - Anesthetic History Anesthesia Complications: reports: No previous complications Family history of Anesthesia Complications: Denies Family history of Malignant Hyperthermia: Denies - Medical History Cardiovascular: reports: None Pulmonary: reports: None Gastrointestinal: reports: None Urinary: reports: None Neuro: reports: None Musculoskeletal: reports: None Blood Disorders: reports: None Skin: reports: None Smoking Status: Never smoker - Surgical History Gynecologic: reports: section, Dilation and currettage, Hysterectomy Exam General: Alert, Oriented x3, Cooperative Dental: WNL Mouth Openin Fingerbreadth Neck Mobility: Normal Mallampati classification: I Thyromental Distance: 4-6 cm Respiratory: Lungs clear Cardiovascular: Regular rate Plan Anesthesia Type: General Consent for Procedure(s) Verified and Reviewed: Yes Code Status: Attempt Resuscitation ASA classification: 2-Mild systemic disease Is this case an emergency?: No
[2020-10-03] MEDS ORDERED: NALOXONE 0.4 MG/ML VIAL IVP PRN (12:08)
[2020-10-03] MEDS ORDERED: fentaNYL 100 MCG/2 ML VIAL IVP PRN (12:08)
[2020-10-03] MEDS ORDERED: HYDROmorphone 0.5 MG/0.5 ML SYRINGE IVP PRN (12:08)
[2020-10-03] MEDS ORDERED: ATROPINE ABBOJECT 1 MG/10 ML SYRINGE IVP PRN (12:08)
[2020-10-03] MEDS ORDERED: ePHEDrine 50 MG/ML VIAL IVP PRN (12:08)
[2020-10-03] MEDS ORDERED: ONDANSETRON 4 MG/2 ML VIAL IVP PRN (12:08)
[2020-10-03] MEDS ORDERED: MORPHINE 2 MG/ML CARPUJECT IVP PRN (12:08)
[2020-10-03] MEDS ORDERED: PROPOFOL 200 MG/20 ML VIAL IVP ONE (12:16)
[2020-10-03] MEDS ORDERED: DEXAMETHASONE 4 MG/ML VIAL ONE (12:16)
[2020-10-03] MEDS ORDERED: ONDANSETRON 4 MG/2 ML VIAL ONE (12:16)
[2020-10-03] MEDS ORDERED: LIDOCAINE-MPF 2% 5 ML VIAL ONE (12:16)
[2020-10-03] MEDS ORDERED: MIDAZOLAM 2 MG/2 ML VIAL ONE (12:16)
[2020-10-03] MEDS ORDERED: fentaNYL 100 MCG/2 ML VIAL ONE (12:16)
--- NOTE | 2020-10-03 12:17 | OPERATIVE REPORT ---
Operative Report - General Procedure Date: 10/03/20 Planned Procedure: Hysteroscopy D&C with possible polypectomy Pre-Op Diagnosis: Thickened endometrium, DUB, possible retained POCs Procedure Performed: Hysteroscopy D&C with polypectomy Post Op Diagnosis: Same with likely retained products of conception - Procedure Note Primary Surgeon: Margareth Mccarthy MD Anesthesia Provider: Maryjane Fortune CRNA Anesthesia Technique: General LMA Pathology: Uterine contents IV Fluids (mL): 700 Estimated Blood Loss (mL): 15 Urine Output (mL): 50 (In and out catheterization) Indications: The patient is a 33-year-old G5, P2 here for for hysteroscopy D&C. Patient was last seen in clinic 08/22/20 for routine pp care. She was having extended vaginal bleeding that seemed heavier than expected. Review of op notes show that there was difficulty removing the placenta as it was adherent to the fundus. She underwent a pelvic us with findings as follows: The uterus measures 5.0 x 6.1 x 8.3 cm. The uterus contains nonvascular heterogeneously hyperechoic material within the uterine cavity, which is inseparable from the endometrium. This measures approximately 3 cm in maximum thickness. This may represent abnormally thickened and heterogenous endometrium, although blood products or retained nonvascular products of conception could appear similar. HCG on 08/22/20 was 4.3, wnl. She continues to have heavy bleeding and is opting for surgical management with hysteroscopy D&C. Findings: Uterine cavity with pale tissue adherent to the posterior uterine wall with loosened fragments with crain-like configuration highly suspicious for retained POCs/trophoblastic tissue. Once tissue was cleared from cavity, uterine cavity was smooth with easily visualized bilateral tubal ostia. Complications: None - Other Other Information/Narrative: Risks benefits and alternatives to the procedure were reviewed. Consent was again confirmed. Patient was taken to the operating room where she underwent general anesthesia. She was positioned in dorsolithotomy position with legs resting in yellowfin stirrups. She was prepped and draped in the usual sterile fashion. Preoperative antibiotics were not indicated. Preoperative checklist was performed. Exam under anesthesia was performed. Speculum was placed in the vagina and the cervix was visualized. Single-tooth tenaculum was placed at the anterior cervical lip. Paracervical block was administered using a total of 20 cc of 0.5% bupivicaine mixed with 1& lidocaine with epinephrine was injected at the 4:00 and 8:00 positions lateral to the portio of the cervix. The cervical os was serially dilated with Hegar dilators to accommodate the caliber of the diagnostic hysteroscope. The hysteroscope was inserted and findings were noted as above. The hysteroscopic morcellator was inserted through the operative port. The intrauterine polyps were morcellated under direct visualization. Uterine cavity was smooth at close of the procedure. Hysteroscope was removed. All instruments were removed from the uterus. Tenaculum was removed. Tenaculum sites were noted to be hemostatic. All instruments were removed from the vagina. Procedure was well-tolerated without complication. Fluid deficit: 540 cc NS
[2020-10-03] MEDS ORDERED: BUPIVACAINE 0.5%-EPI 1:200000 PF 30 ML VIAL SUBQ ONE (12:54)
[2020-10-03] MEDS ORDERED: LACTATED RINGERS 1,000 ML IV SCH (13:00)
[2020-10-03] MEDS ORDERED: oxyCODONE 5 MG TABLET PO PRN (13:21)
[2020-10-03 14:10] VITALS: BP 112/70
--- NOTE | 2020-10-03 15:01 | ANESTHESIA POST OP EVALUATION ---
Anesthesia Post Eval - Post Anesthesia Eval Vitals: Last Vital Signs Temp 36.6 C 10/03/20 14:10 Pulse 90 10/03/20 14:10 Resp 18 10/03/20 14:10 BP 112/70 10/03/20 14:10 Pulse Ox 100 10/03/20 14:10 CV Function Including HR & BP: Stable Pain Control: Satisfactory Nausea & Vomiting: Negative Mental Status: Baseline Respiratory Status: Airway Patent Hydration Status: Satisfactory Anesthesia Complications: None
== END 2020-10-03 11:33 | disposition home or self-care (01) ==
LOC: SDS 11:32
PROVIDERS: ATTEND Obstetrics & Gynecology
PROC: 10D18ZZ Extraction of Products of Conception, Retained, Via Natural or Artificial Opening Endoscopic (ICD-10-PCS; principal; 2020-10-03 11:45)
DX: O72.2 Delayed and secondary postpartum hemorrhage (principal); E66.3 Overweight
CPT/HCPCS: 59160; 81025; A9270; J0131; J7120

== ENCOUNTER 2022-04-24 15:15 | Outpatient (CLI) | payer OTHER ==
[2022-04-24 15:31] LABS: BASOPHILS % (AUTO) 0.1 %; EOSINOPHILS # (AUTO) 0.3 10^3/uL (0.0-0.7); EOSINOPHILS % (AUTO) 1.6 %; HCT - HEMATOCRIT 36.4 % (37.0-47.0); HGB - HEMOGLOBIN 12.3 g/dL (12.0-16.0); LYMPHOCYTES # (AUTO) 2.5 10^3/uL (1.5-3.5); LYMPHOCYTES % (AUTO) 16.5 %; MEAN CORPUSCULAR HEMOGLOBIN 29.8 pg (27.0-31.0); MEAN CORPUSCULAR HGB CONC 33.8 g/dL (32.0-36.0); MEAN CORPUSCULAR VOLUME 88.1 fL (81.0-99.0); MEAN PLATELET VOLUME 9.8 fL (7.9-10.8); MONOCYTES # (AUTO) 0.6 10^3/uL (0.0-1.0); MONOCYTES % (AUTO) 3.9 %; NEUTROPHILS % (AUTO) 77.6 %; PLT - PLATELET COUNT 242 10^3/uL (130-450); RED BLOOD COUNT 4.13 10^6/uL (4.20-5.40); RED CELL DISTRIBUTION WIDTH 12.5 % (12.0-15.0); WHITE BLOOD COUNT 15.4 x10^3/uL (4.8-10.8)
[2022-04-25 05:10] LABS: HBsAG SCREEN Negative (Negative)
[2022-04-25 06:09] LABS: HCV AB <0.1 s/co ratio (0.0-0.9); HIV SCREEN 4TH GENERATION Non Reactive (Non Reactive)
[2022-04-25 08:10] LABS: RPR Non Reactive (Non Reactive); VARICELLA-ZOSTER AB IGG 597 index (Immune >165)
== END 2022-04-24 15:16 | disposition home or self-care (01) ==
LOC: LAB 15:15
PROVIDERS: ATTEND Obstetrics & Gynecology
DX: Z34.90 Encounter for supervision of normal pregnancy, unspecified, unspecified trimester (principal)
CPT/HCPCS: 36415; 85025; 86592; 86762; 86787; 86803; 86850; 86900; 86901; 87340; 87389

== ENCOUNTER 2022-05-09 08:00 | Outpatient (CLI) | payer OTHER ==
[2022-05-09 20:54] LABS: CHLAMYDIA TRACHOMATIS DNA NEGATIVE (NEGATIVE); NEISSERIA GONORRHOEAE DNA NEGATIVE (NEGATIVE); TRICHOMONAS VAGINALIS DNA NEGATIVE (NEGATIVE)
== END 2022-05-09 23:59 | disposition home or self-care (01) ==
LOC: LAB.WC 08:00
PROVIDERS: ATTEND Obstetrics & Gynecology
DX: Z11.3 Encounter for screening for infections with a predominantly sexual mode of transmission (principal)
CPT/HCPCS: 87491; 87591; 87661

== ENCOUNTER 2022-06-06 13:23 | Outpatient (CLI) | payer OTHER ==
--- NOTE | 2022-06-07 10:20 | Ultrasound Report ---
PROCEDURE: OB Detailed Eval INDICATIONS: SUPERVISION OF OUTSIDE/PRIOR DATING DATA: Last menstrual period (LMP): 01/29/2022. LMP-based estimated date of delivery (MELISSA): 10/17/2021. First dating scan (date and location): 03/18/2022. Estimated date of delivery (MELISSA) from first dating scan: 10/17/2022. The below data below was generated using the ultrasound MELISSA of 10/17/2022 TECHNIQUE: Real-time scanning was performed of the fetus, with image documentation and biometric measurements. Endovaginal scanning: Not performed COMPARISON: None. FINDINGS: General: A single living intrauterine gestation is present. Presentation: Breech Placenta: Placental position is anterior and fundal, without previa. Amniotic fluid index: 11.1 cm, within normal limits but at the lower limit of normal (13th percentil e). heart rate: 141 beats per minute. Maternal cervical canal: 5.5 cm long; normal length is 2.5 cm or more. biometrics: Biparietal diameter: 5 cm Head circumference: 19.2 cm Abdominal circumference: 18.4 cm Femur length: 3.5 cm Estimated gestational age from initial ultrasound: 21 weeks zero days. Composite gestational age from present scan: 21 weeks three days Estimated weight and percentile: 476 g, 93rd percentile Measurement variability in biometric dating: +/- 10 days from 12-20 weeks gestation, +/- 2 weeks from 20-30 weeks gestation, +/- 3 weeks at 30 weeks gestation or later. Anatomic survey: Neuro: Ventricles are normal at less than 10 mm. Cisterna magna is normal at 3-11 mm. Cerebellum i s normal in size and morphology. Nuchal skin fold: Normal at less than 6 mm between 14 and 20 weeks gestational age. Face: Inadequate views of the face and facial profile.. Spine: No evidence for spina bifida. Heart: Inadequate four chamber views and ventricular outflow tract views. Diaphragm: Diaphragm is intact. Stomach: Left-sided stomach is present. Kidneys: No hydronephrosis. Normal is less than 5 mm in 2nd trimester, less than 7 mm in 3rd trimester. Cord: 3 vessel cord has orthotopic insertion. Bladder: Normal in size. Extremities: All 4 extremities are visualized. IMPRESSION: Single living intrauterine gestation with estimated gestational age of 21 weeks 3 days. macrosomia at the 93rd percentile. Lower limit normal CARMEN. Inadequate facial profile and ventricular outflow tract views. Repeat study recommended. Reviewed by: Alex Torres MD on 06/07/2022 10:18 AM PST Approved by: Alex Torres MD on 06/07/2022 10:18 AM [facility] Station ID: [id number]
[2022-06-08 21:02] LABS: AFP MOM 2.49 (.); AFP VALUE 92.2 ng/mL (.); DIA VALUE 188.42 pg/mL (.); DSR (BY AGE) 1 IN 325 (.); DSR (SECOND TRIMESTER) 1 IN 6901 (.); HCG MOM 0.91 (.); HCG VALUE 30050 mIU/mL (.); INSULIN DEP DIABETES No (.); MATERNAL AGE AT EDD 34.6 yr (.); MULTIPLE GESTATION No (.); OPEN SPINA BIFIDA RISK 1 IN 293 (.); RACE Caucasian (.); RESULTS Report (.); TEST RESULTS *Screen Negative* (.); TRISOMY 18 RISK Not increased (.); UE3 MOM 3.72 (.); UE3 VALUE 4.34 ng/mL (.); WEIGHT 169 lbs (.)
== END 2022-06-06 13:24 | disposition home or self-care (01) ==
LOC: DI 13:23
PROVIDERS: ATTEND Obstetrics & Gynecology
DX: O36.62X0 Maternal care for excessive fetal growth, second trimester, not applicable or unspecified (principal); O32.1XX0 Maternal care for breech presentation, not applicable or unspecified; Z3A.21 21 weeks gestation of pregnancy
CPT/HCPCS: 36415; 81511

== ENCOUNTER 2022-07-03 17:06 | Outpatient (CLI) | payer OTHER ==
--- NOTE | 2022-07-04 17:23 | Ultrasound Report ---
PROCEDURE: OB F/U or Repeat INDICATIONS: SUPERVISION OF OUTSIDE/PRIOR DATING DATA: Last menstrual period (LMP): 01/29/2022. LMP-based estimated date of delivery (MELISSA): 10/17/2022. First dating scan (date and location): 03/18/2022, Dr. Huynh. Estimated date of delivery (MELISSA) from first dating scan: 10/17/2022. TECHNIQUE: Real-time scanning was performed of the fetus, with image documentation and biometric measurements. COMPARISON: None. FINDINGS: General: A single living intrauterine gestation is present. Presentation: Transverse head to the maternal left Placenta: Placental position is posterior/fundal, without previa. Amniotic fluid index: 13.9 cm. heart rate: 166 beats per minute. Maternal cervical canal: 4.9 cm long; normal length is 2.5 cm or more. Estimated gestational age from initial scan: 24 weeks, 6 days Measurement variability in biometric dating: +/- 10 days from 12-20 weeks gestation, +/- 2 weeks from 20-30 weeks gestation, +/- 3 weeks at 30 weeks gestation or more. Other: Bilateral cardiac outflow tracts have a normal sonographic appearance. Normal profile. IMPRESSION: 1. Normal bilateral cardiac outflow tracts. 2. Normal profile. Reviewed by: Cecelia Schaefer MD on 07/04/2022 5:22 PM PST Approved by: Cecelia Schaefer MD on 07/04/2022 5:22 PM PST Station ID: [id number]
== END 2022-07-03 17:07 | disposition home or self-care (01) ==
LOC: DI 17:06
PROVIDERS: ATTEND Obstetrics & Gynecology
DX: Z34.92 Encounter for supervision of normal pregnancy, unspecified, second trimester (principal)

== ENCOUNTER 2022-08-03 09:32 | Outpatient (CLI) | payer OTHER ==
[2022-08-03 19:05] LABS: HCT - HEMATOCRIT 37.1 % (37.0-47.0); HGB - HEMOGLOBIN 12.2 g/dL (12.0-16.0); MEAN CORPUSCULAR HEMOGLOBIN 29.9 pg (27.0-31.0); MEAN CORPUSCULAR HGB CONC 32.9 g/dL (32.0-36.0); MEAN CORPUSCULAR VOLUME 90.9 fL (81.0-99.0); MEAN PLATELET VOLUME 10.3 fL (7.9-10.8); RED BLOOD COUNT 4.08 10^6/uL (4.20-5.40); RED CELL DISTRIBUTION WIDTH 13.6 % (12.0-15.0); WHITE BLOOD COUNT 12.7 x10^3/uL (4.8-10.8)
== END 2022-08-03 09:33 | disposition home or self-care (01) ==
LOC: LAB.N 09:32
PROVIDERS: ATTEND Obstetrics & Gynecology
DX: Z34.90 Encounter for supervision of normal pregnancy, unspecified, unspecified trimester (principal)
CPT/HCPCS: 36415; 82950; 85027

== ENCOUNTER 2022-08-22 15:26 | Outpatient (CLI) | payer OTHER ==
--- NOTE | 2022-08-22 19:07 | Ultrasound Report ---
PROCEDURE: OB F/U or Repeat INDICATIONS: EXCESSIVE WEIGHT GAIN IN OUTSIDE/PRIOR DATING DATA: Last menstrual period (LMP): 01/29/2022. LMP-based estimated date of delivery (MELISSA): 10/17/2022. First dating scan (date and location): 03/18/2022. Estimated date of delivery (MELISSA) from first dating scan: 10/17/2022. The below data below was generated using the working MELISSA of 10/17/2022 TECHNIQUE: Real-time scanning was performed of the fetus, with image documentation and biometric measurements. Endovaginal scanning: None COMPARISON: None. FINDINGS: General: A single living intrauterine gestation is present. Presentation: Transverse Placenta: Placental position is posterior, without previa. Amniotic fluid index: 19.3 cm, normal for gestational age. heart rate: 126 beats per minute. Maternal cervical canal: 5.3 cm long; normal length is 2.5 cm or more. biometrics: Biparietal diameter: 8.3 cm, 33 week 3 day Head circumference: 31.3 cm, 35 week 1 day Abdominal circumference: 29.4 cm, 33 week 3 day Femur length: 6.1 cm, 31 week 4 day Estimated gestational age from initial scan: 32 week 0 day Composite gestational age from present scan: 33 week 3 day Estimated weight and percentile: 2101.9 g, 72 percentile Measurement variability in biometric dating: +/- 10 days from 12-20 weeks gestation, +/- 2 weeks from 20-30 weeks gestation, +/- 3 weeks at 30 weeks gestation or more. Other: Not applicable. IMPRESSION: Single live intrauterine consistent with 33 week 3 day gestation by current ultrasound Reviewed by: Josiah Fleming MD on 08/22/2022 6:05 PM [facility] Approved by: Josiah Fleming MD on 08/22/2022 6:05 PM [facility] Station ID: [id number]
== END 2022-08-22 15:27 | disposition home or self-care (01) ==
LOC: DI 15:26
PROVIDERS: ATTEND Obstetrics & Gynecology
DX: O26.03 Excessive weight gain in pregnancy, third trimester (principal); Z3A.33 33 weeks gestation of pregnancy

== ENCOUNTER 2022-09-23 08:00 | Outpatient (CLI) | payer OTHER | END 2022-09-23 23:59 | disposition home or self-care (01) | LOC: LAB.WC 08:00 | PROVIDERS: ATTEND Obstetrics & Gynecology | DX: Z36.85 Encounter for antenatal screening for Streptococcus B (principal); O99.891 Other specified diseases and conditions complicating pregnancy; N89.8 Other specified noninflammatory disorders of vagina | CPT/HCPCS: 84112; 87797 ==

== ENCOUNTER 2022-10-09 06:26 | Inpatient (IN) | payer OTHER ==
[2022-10-09] MEDS ORDERED: CITRIC ACID/SODIUM CITRATE 15 ML UDC PO ONE (06:44)
[2022-10-09] MEDS ORDERED: ceFAZolin 2 GM in SODIUM CHLORIDE 0.9% MINIBAG 100 ML IV ONE (06:44)
[2022-10-09] MEDS ORDERED: SODIUM CHLORIDE FLUSH 0.9% 10 ML SYRINGE IVP PRN ×2 (06:46)
[2022-10-09] MEDS ORDERED: TRANEXAMIC ACID IN NACL 1,000 MG/100 ML BAG IV PRN (06:46)
[2022-10-09] MEDS ORDERED: METHYLERGONOVINE 0.2 MG/ML VIAL IM PRN ×2 (06:46→11:26)
[2022-10-09] MEDS ORDERED: NIFEdipine 10 MG CAPSULE PO PRN ×2 (06:46→11:26)
[2022-10-09] MEDS ORDERED: LABETALOL 20 MG/4 ML SYRINGE IVP PRN ×6 (06:46→11:26)
[2022-10-09] MEDS ORDERED: hydrALAZINE INJ 20 MG/ML VIAL IVP PRN ×4 (06:46→11:26)
[2022-10-09] MEDS ORDERED: miSOPROStoL 200 MCG TABLET PR PRN (06:46)
[2022-10-09] MEDS ORDERED: OXYTOCIN/SODIUM CHLORIDE 500 ML IV PRN ×2 (06:46→11:26)
[2022-10-09] MEDS ORDERED: miSOPROStoL 200 MCG TABLET BC PRN (06:46)
[2022-10-09] MEDS ORDERED: CARBOPROST TROMETHAMINE 250 MCG/ML AMP IM PRN (06:46)
[2022-10-09] MEDS ORDERED: LACTATED RINGERS 1,000 ML ONE (06:49)
--- NOTE | 2022-10-09 06:56 | HISTORY & PHYSICAL EXAMINATION ---
Admit History - Visit Reason Visit Reason: Contractions, Membranes rupture, Other (history of previous section) - : 6 Parity: 2 Care: positive: [facility] Risk/History: positive: Previous , Other (history of laparoscopy for endometriosis) Smoking Status: Never smoker - Mother's Labs Mother's Blood Type: positive: A Mother's RH: positive: Positive GBS: positive: Group B Strep Positive Rubella Status: positive: Immune Meds/Allgy - Home Medications Home Medications: Ambulatory Orders Medication Instructions Recorded Confirmed Pnv95/Iron Fum/Folic Acid 1 tab PO DAILY 12/11/15 [ Caplet] Sertraline HCl [Zoloft] 200 mg PO DAILY 12/11/15 10/03/20 Acetaminophen [Acetaminophen Extra 1,000 mg PO Q8H PRN #60 tablet 10/03/20 Strength] Docusate Sodium 100Mg Capsule 100 - 200 mg PO BID PRN #60 cap 10/03/20 [Colace 100Mg Capsule] Ibuprofen [Motrin] 600 mg PO Q6H PRN #60 tab 10/03/20 oxyCODONE [Roxicodone] 2.5 - 5 mg PO Q4H PRN #16 tablet 10/03/20 - Allergies Allergies/Adverse Reactions: Allergies Allergy/AdvReac Type Severity Reaction Status Date / Time No Known Drug Allergies Allergy Verified 12/11/15 18:02 Review of Systems - Cardiovascular Cariovascular: denies: Chest pain - Respiratory Respiratory: denies: Cough - All Other Systems All Other Systems: reports: Reviewed and negative (Patient complaining of contractions that started last night and are now occuring every 3-4 minutes. Rupture of membranes at 6 am.) Physical - Abdominal Exam Contraction Intensity: positive: Moderate to strong - Vaginal Exam Membranes: positive: Membranes ruptured Dilation (in cm): 0 Station: positive: -3 Plan for Labor - Plan For Labor Plan for Labor: 1. history of two previous sections -rupture of membranes -We discussed delivery in detail. The risks, benefits and alternatives were discussed. We discussed the procedure, usual hospital stay, recovery and postoperative restrictions. Risks of surgery were discussed including bleeding, infection, injury to bladder/bowel and other surrounding structures, risks of post operative complications such as DVT/PE, and risks associated with anesthesia. Discussed risk of scar tissue, thin lower uterine segment, and risk of abnormal placentation in future pregnancies. She had a chance to ask questions and voiced understanding of the risks, benefits, and alternatives. The patient agrees to the procedure and desires to proceed. Written and verbal consent obtained.
[2022-10-09] MEDS ORDERED: AZITHROMYCIN INJ 500 MG in SODIUM CHLORIDE 0.9% 250 ML IV SCH (07:00)
[2022-10-09] MEDS ORDERED: SODIUM CHLORIDE FLUSH 0.9% 10 ML SYRINGE IVP SCH ×2 (07:00→09:00)
[2022-10-09] MEDS ORDERED: SODIUM CHLORIDE 0.9% 10 ML VIAL IVP ONE (07:07)
[2022-10-09] MEDS ORDERED: MORPHINE PF 5 MG/10 ML VIAL ONE (07:07)
[2022-10-09] MEDS ORDERED: ePHEDrine 50 MG/ML VIAL IVP ONE (07:07)
[2022-10-09] MEDS ORDERED: fentaNYL 100 MCG/2 ML VIAL ONE (07:07)
[2022-10-09] MEDS ORDERED: LIDOCAINE 2%-EPI 1:100000 20 ML MDV ONE (07:08)
[2022-10-09] MEDS ORDERED: BUPIVACAINE 0.25% PF 30 ML VIAL ONE (07:08)
[2022-10-09] MEDS ORDERED: ONDANSETRON 4 MG/2 ML VIAL IVP PRN ×2 (07:11→08:00)
[2022-10-09] MEDS ORDERED: MORPHINE 2 MG/ML CARPUJECT IVP PRN (07:11)
[2022-10-09] MEDS ORDERED: HYDROmorphone 0.5 MG/0.5 ML SYRINGE IVP PRN (07:11)
[2022-10-09] MEDS ORDERED: METOCLOPRAMIDE 10 MG/2 ML VIAL IVP PRN ×2 (07:11→08:00)
[2022-10-09] MEDS ORDERED: NALOXONE 0.4 MG/ML VIAL IVP PRN ×3 (07:11→11:26)
[2022-10-09] MEDS ORDERED: fentaNYL 100 MCG/2 ML VIAL IVP PRN (07:11)
[2022-10-09] MEDS ORDERED: ePHEDrine 50 MG/ML VIAL IVP PRN ×2 (07:11→08:00)
[2022-10-09] MEDS ORDERED: ATROPINE ABBOJECT 1 MG/10 ML SYRINGE IVP PRN (07:11)
--- NOTE | 2022-10-09 07:11 | ANESTHESIA ---
Pre-Anesthesia VS, & Labs - Diagnosis previous c/s, ruptured, taye - Procedure repeat c/s Height: 5 ft 5 in - NPO >8 hours - Is Patient ?: Yes - Lab Results Lab results reviewed: Yes Home Medications and Allergies Active Medications Carboprost Tromethamine (Carboprost Tromethamine 250 Mcg/Ml Amp) 250 mcg IM .ONCE PRN PRN Reason: Hemorrhage Hydralazine HCl (Hydralazine Inj 20 Mg/Ml Vial) 5 - 10 mg IVP Q20M PRN; Protocol PRN Reason: SBP> or= 160 OR DBP> or= 110 Hydralazine HCl (Hydralazine Inj 20 Mg/Ml Vial) 10 mg IVP .ONCE PRN; Protocol PRN Reason: SBP> or= 160 OR DBP> or= 110 Lactated Ringer's (Lr) 1,000 mls @ 125 mls/hr IV .Q8H RUTHANN Cefazolin Sodium 2 gm/ Sodium (Chloride) 100 mls @ 200 mls/hr IV ONCE ONE Stop: 10/09/22 07:13 Azithromycin 500 mg/ Sodium (Chloride) 250 mls @ 250 mls/hr IV ONCE RUTHANN Stop: 10/09/22 11:00 Oxytocin/Sodium Chloride (Pitocin/Sodium Chloride) 500 mls @ 999 mls/hr IV PRN PRN; Protocol PRN Reason: POST- HEMORR PREVENTION Tranexamic Acid (Tranexamic 1,000 Mg/100ml-Nacl) 1,000 mg in 100 mls @ 600 mls/hr IV Q30M PRN PRN Reason: EBL >1200mL and within 3hr Labetalol HCl (Labetalol 20 Mg/4 Ml Syringe) 20 - 80 mg IVP Q10M PRN; Protocol PRN Reason: SBP> or= 160 OR DBP> or= 110 Labetalol HCl (Labetalol 20 Mg/4 Ml Syringe) 20 mg IVP .ONCE PRN; Protocol PRN Reason: SBP> or= 160 OR DBP> or= 110 Labetalol HCl (Labetalol 20 Mg/4 Ml Syringe) 20 - 40 mg IVP Q10M PRN; Protocol PRN Reason: SBP> or= 160 OR DBP> or= 110 Methylergonovine Maleate (Methylergonovine 0.2 Mg/Ml Vial) 0.2 mg IM .ONCE PRN PRN Reason: Hemorrhage Misoprostol (Misoprostol 200 Mcg Tablet) 600 mcg BC .ONCE PRN PRN Reason: Hemorrhage Misoprostol (Misoprostol 200 Mcg Tablet) 800 mcg AL .ONCE PRN PRN Reason: Hemorrhage Nifedipine (Nifedipine 10 Mg Capsule) 10 - 20 mg PO Q20M PRN; Protocol PRN Reason: SBP> or= 160 OR DBP> or= 110 Sodium Chloride (Sodium Chloride Flush 0.9% 10 Ml Syringe) 10 ml IVP PRN PRN PRN Reason: NEEDED PER PROVIDER ORDERS Sodium Chloride (Sodium Chloride Flush 0.9% 10 Ml Syringe) 10 ml IVP 0100,0900,1700 RUTHANN Sodium Chloride (Sodium Chloride Flush 0.9% 10 Ml Syringe) 10 ml IVP PRN PRN PRN Reason: NEEDED PER PROVIDER ORDERS Sodium Chloride (Sodium Chloride Flush 0.9% 10 Ml Syringe) 10 ml IVP Q8H RUTHANN Pnv95/Iron Fum/Folic Acid [ Caplet] 1 tab PO DAILY 12/11/15 Sertraline HCl [Zoloft] 200 mg PO DAILY 12/11/15 Allergies/Adverse Reactions: Allergies Allergy/AdvReac Type Severity Reaction Status Date / Time No Known Drug Allergies Allergy Verified 12/11/15 18:02 Anes History & Medical History - Anesthetic History Anesthesia Complications: reports: No previous complications Family history of Anesthesia Complications: Denies Family history of Malignant Hyperthermia: Denies - Medical History Cardiovascular: reports: None Pulmonary: reports: None Gastrointestinal: reports: None Urinary: reports: None Neuro: reports: None Musculoskeletal: reports: None Blood Disorders: reports: None Skin: reports: None Smoking Status: Never smoker - Obstetrical History : 6 Parity: 2 Events: reports: Previous , Other (history of laparoscopy for endometriosis) Exam General: Alert, Oriented x3, Cooperative Dental: WNL Mouth Openin Fingerbreadth Neck Mobility: Normal Mallampati classification: II Thyromental Distance: 4-6 cm Respiratory: Lungs clear, Normal breath sounds, No respiratory distress Cardiovascular: Regular rate Mental/Cognitive Status: Alert/Oriented X3, Normal for patient Cognitive Status: Within normal limits Plan Anesthesia Type: Spinal Consent for Procedure(s) Verified and Reviewed: Yes Code Status: Attempt Resuscitation ASA classification: 2-Mild systemic disease Is this case an emergency?: Yes
[2022-10-09] MEDS ORDERED: OXYTOCIN 10 UNIT/ML VIAL ONE (07:13)
[2022-10-09 07:15] LABS: BASOPHILS % (AUTO) 0.3 %; EOSINOPHILS # (AUTO) 0.5 10^3/uL (0.0-0.7); EOSINOPHILS % (AUTO) 3.3 %; HCT - HEMATOCRIT 37.6 % (37.0-47.0); HGB - HEMOGLOBIN 12.6 g/dL (12.0-16.0); LYMPHOCYTES # (AUTO) 3.1 10^3/uL (1.5-3.5); LYMPHOCYTES % (AUTO) 20.4 %; MEAN CORPUSCULAR HEMOGLOBIN 29.1 pg (27.0-31.0); MEAN CORPUSCULAR HGB CONC 33.5 g/dL (32.0-36.0); MEAN CORPUSCULAR VOLUME 86.8 fL (81.0-99.0); MEAN PLATELET VOLUME 10.5 fL (7.9-10.8); MONOCYTES # (AUTO) 1.2 10^3/uL (0.0-1.0); NEUTROPHILS # (AUTO) 10.2 10^3/uL (1.5-6.6); NEUTROPHILS % (AUTO) 66.8 %; PLT - PLATELET COUNT 215 10^3/uL (130-450); RED BLOOD COUNT 4.33 10^6/uL (4.20-5.40); RED CELL DISTRIBUTION WIDTH 13.5 % (12.0-15.0); WHITE BLOOD COUNT 15.3 x10^3/uL (4.8-10.8)
[2022-10-09] MEDS: LACTATED RINGERS 1,000 ML IV SCH ×2 (07:15→16:34)
[2022-10-09] MEDS ORDERED: fentaNYL 100 MCG/2 ML VIAL IT ONE (07:27)
[2022-10-09] MEDS ORDERED: MORPHINE PF 5 MG/10 ML VIAL IT ONE (07:27)
[2022-10-09] MEDS ORDERED: ONDANSETRON 4 MG/2 ML VIAL ONE (07:35)
[2022-10-09] MEDS ORDERED: ceFAZolin 1 GM VIAL ONE (07:40)
[2022-10-09] MEDS ORDERED: PHENYLEPHRINE 10 MG/ML VIAL ONE (07:43)
[2022-10-09] MEDS ORDERED: CARBOPROST TROMETHAMINE 250 MCG/ML AMP IM ONE ×4 (07:57→08:15)
[2022-10-09] MEDS ORDERED: METHYLERGONOVINE 0.2 MG/ML VIAL ONE (07:57)
[2022-10-09] MEDS ORDERED: miSOPROStoL 200 MCG TABLET ONE ×2 (07:57→09:00)
[2022-10-09] MEDS ORDERED: NALBUPHINE 10 MG/ML AMP IVP PRN (08:00)
[2022-10-09] MEDS ORDERED: LACTATED RINGERS 1,000 ML IV SCH (08:00)
[2022-10-09] MEDS ORDERED: METHYLERGONOVINE 0.2 MG/ML AMP IM ONE (08:15)
[2022-10-09] MEDS ORDERED: miSOPROStoL 200 MCG TABLET PR ONE (08:15)
[2022-10-09] MEDS ORDERED: LACTATED RINGERS 1,000 ML IV ONE (08:47)
--- NOTE | 2022-10-09 09:00 | DELIVERY NOTE ---
Delivery Note - Infant Delivery Method Infant Delivery Method: positive: Repeat - Presentation Presentation: positive: Breech (double footling breech) - Nuchal Cord Nuchal Cord: positive: None - Anesthetic Anesthetic Type: - Amniotic Fluid Description Amniotic Fluid Description: positive: Particulate meconium - Placenta Placenta: positive: Manual removal - Estimated Blood Loss Estimated Blood Loss (in cc): 2,100 - Delivery Comments (Free Text/Narrative) Delivery Comments (Free Text/Narrative): Operative Report Preoperative Diagnosis: 1. Intrauterine at 38+5 2. labor 3. SROM 4. history of previous section Postoperative Diagnosis: same, 5. hemorrhage Procedure: Repeat Low Transverse Section Surgeon: Dr. Pedersen Cotton Chopper: Mayte Espino CNM Anesthesia: Spinal EBL: 2100 mL Drains: bhatt, Bakri balloon Complications: none Specimens: placenta Findings: Normal uterus, fallopian tubes, and ovaries bilaterally Liveborn male, weight and apgars pending, particulate meconium Indication Patient has a history of two previous sections. She presented with SROM and in labor. The risks, benefits, and alternatives to delivery were discussed. Risks include but are not limited to: bleeding, infection, risk of anesthesia, and risk of injury to other organs/anatomy. The patient gave consent prior to the procedure. Procedure: The patient was taken to the OR where a final time out was performed per standard protocol. After spinal anesthesia was placed, she was positioned on the table in the dorsal supine position with a left tilt. The abdomen was prepped and draped in the typical sterile fashion. Spinal anesthesia was found to be adequate. A Pfannensteil incision was made with the scalpel and carried down to the fascia. The fascia was incised in the midline and the incision extended bilaterally with Michel scissors. The fascia was dissected off of the underlying rectus muscles superiorly and inferiorly. The rectus were and the peritoneum entered bluntly. The peritoneal incision was extended. The bladder blade was then placed. A transverse incision was made with the scalpel in the lower uterine segment and extended with traction in a cephalad-caudad direction. The was then delivered from double footling breech presentation in an uncomplicated fashion using standard maneuvers. The infant was immediately vigorous. The 's nose and mouth were bulb suctioned. The cord was doubly clamped and cut and the handed to pediatric staff. Cord segment and cord blood was collected. Cord gases were sent. The placenta then delivered using intra abdominal fundal massage and gentle cord traction. The uterus was then exteriorized. The uterus was inspected and wiped of all debris. The edges of the uterine incision were identified. The uterus was atonic. Intrauterine methergine was given. IM hemabate was given. Rectal cytotec was given. The uterus remained atonic with massage. A bakri balloon was placed. The uterus was returned to its anatomic position and the Bakri was filled with 200 mL of normal saline. The uterus was closed in a running locked layer with 0-vicryl. The incision was inspected and found to be hemostatic. The gutters were cleared of clots. The fascia and rectus were inspected and found to be hemostatic. The fascia was closed with a running 0-Vicryl. The subcutaneous tissues were irrigated and hemostasis obtained. The subcutaneous tissues were re-approximated with 2-0 vicryl. The skin was closed with subcutaneous suture with 3-0 vicryl. An island dressing was applied. The patient tolerated the procedure well. All sponge, lap, needle, and instrument counts were correct times two. The patient was taken to the recovery room in stable condition.
[2022-10-09] MEDS: diphenhydrAMINE INJ 50 MG/ML VIAL IVP PRN ×2 (09:24→16:28)
--- NOTE | 2022-10-09 09:38 | ANESTHESIA POST OP EVALUATION ---
Anesthesia Post Eval - Post Anesthesia Eval Vitals: Last Vital Signs Temp 36.6 C 10/09/22 09:20 Pulse 88 10/09/22 09:20 Resp 14 10/09/22 09:20 BP 109/64 10/09/22 09:20 Pulse Ox 99 10/09/22 09:20 O2 Flow Rate CV Function Including HR & BP: Stable Pain Control: Satisfactory Nausea & Vomiting: Negative Mental Status: Baseline Respiratory Status: Airway Patent Hydration Status: Satisfactory Anesthesia Complications: None
[2022-10-09] MEDS: KETOROLAC 30 MG/ML VIAL IVP SCH ×2 (12:18→17:43)
[2022-10-09] MEDS: ACETAMINOPHEN 500 MG TABLET PO SCH ×2 (13:47→21:35)
[2022-10-09] MEDS: oxyCODONE 5 MG TABLET PO PRN ×3 (13:47→21:28)
--- NOTE | 2022-10-09 16:32 | PROVIDER PROGRESS NOTE ---
Subjective - Prog Note Date Prog Note Date: 10/09/22 - Subjective Subjective: Patient is POD#0 s/p RCS complicated by PPH Patient is doing well. Objective - Vital Signs/Intake & Output Reviewed Vital Signs: Yes Vital Signs: Vital Signs x48h Temp Pulse Pulse Resp BP BP Pulse Ox 10/09/22 14:56 97.2 F L 104 H 24 112/67 10/09/22 13:53 97.9 F 80 20 102/59 L 10/09/22 12:00 98.1 F 62 18 128/62 10/09/22 09:35 97.9 F 71 16 113/76 99 10/09/22 09:20 97.9 F 88 14 109/64 99 10/09/22 09:11 97.9 F 79 14 111/81 H 97 10/09/22 09:00 97.9 F 89 20 103/70 98 10/09/22 08:55 97.9 F 79 20 100/66 99 10/09/22 08:50 97.9 F 82 16 85/63 L 99 10/09/22 08:43 97.9 F 80 14 107/68 100 Intake & Output: Intake & Output 10/06/22 10/07/22 10/08/22 10/09/22 23:59 23:59 23:59 23:59 Intake Total 1000 Output Total 1090 Balance -90 - Objective General Appearance: positive: No acute distress - Lab Results Fish Bones: 10/09/22 07:01 Other Labs: Lab Results x24hrs 10/09/22 10/09/22 Range/Units 07:13 07:01 WBC 15.3 H (4.8-10.8) x10^3/uL RBC 4.33 (4.20-5.40) 10^6/uL Hgb 12.6 (12.0-16.0) g/dL Hct 37.6 (37.0-47.0) % MCV 86.8 (81.0-99.0) fL MCH 29.1 (27.0-31.0) pg MCHC 33.5 (32.0-36.0) g/dL RDW 13.5 (12.0-15.0) % Plt Count 215 (130-450) 10^3/uL MPV 10.5 (7.9-10.8) fL Neut # (Auto) 10.2 H (1.5-6.6) 10^3/uL Lymph # (Auto) 3.1 (1.5-3.5) 10^3/uL [place] # (Auto) 1.2 H (0.0-1.0) 10^3/uL Eos # (Auto) 0.5 (0.0-0.7) 10^3/uL Baso # (Auto) 0.0 (0.0-0.1) 10^3/uL Absolute Nucleated RBC 0.00 x10^3/uL Nucleated RBC % 0.0 /100WBC Blood Type A POSITIVE Antibody Screen NEGATIVE - Other Results/Comments Other Results/Comments: removed 50 mL from Bakri balloon total output has been 125 ml Assessment/Plan - Problem List (1) hemorrhage Impression: pt received hemabate, methergine, cytotec Bakri balloon in place, 50 mL removed. Discussed with patient will slowly deflate balloon urine output is adequate PO methergine TID CBC now and in AM
[2022-10-09 16:44] LABS: BASOPHILS % (AUTO) 0.3 %; EOSINOPHILS % (AUTO) 0.2 %; HGB - HEMOGLOBIN 11.2 g/dL (12.0-16.0); LYMPHOCYTES % (AUTO) 13.1 %; MEAN CORPUSCULAR HEMOGLOBIN 29.1 pg (27.0-31.0); MEAN CORPUSCULAR HGB CONC 32.9 g/dL (32.0-36.0); MEAN CORPUSCULAR VOLUME 88.3 fL (81.0-99.0); MEAN PLATELET VOLUME 10.3 fL (7.9-10.8); MONOCYTES % (AUTO) 6.4 %; NEUTROPHILS % (AUTO) 79.2 %; PLT - PLATELET COUNT 233 10^3/uL (130-450); RED BLOOD COUNT 3.85 10^6/uL (4.20-5.40); RED CELL DISTRIBUTION WIDTH 13.6 % (12.0-15.0); WHITE BLOOD COUNT 22.9 x10^3/uL (4.8-10.8)
[2022-10-09 16:47] LABS: ABNORMAL LYMPHS % (MANUAL) 0 %
[2022-10-09] MEDS: METHYLERGONOVINE 0.2 MG/ML VIAL PO SCH (16:59)
[2022-10-09] MEDS ORDERED: CHERRY SYRUP 10 ML UDC PO ONE (17:00)
[2022-10-09 17:03] LABS: BAND NEUTROPHILS % (MANUAL) 2 %; EOSINOPHILS # (MANUAL) 0.2 10^3/uL (0-0.7); LYMPHOCYTES # (MANUAL) 3.4 10^3/uL (1.5-3.5); LYMPHOCYTES % (MANUAL) 15 %; MONOCYTES # (MANUAL) 1.6 10^3/uL (0.0-1.0); NEUTROPHILS # (MANUAL) 17.6 10^3/uL (1.5-6.6)
[2022-10-09 17:04] LABS: DIFFERENTIAL COMMENT MANUAL DIFFERENTIAL; PLATELET ESTIMATE, MANUAL NORMAL (130-450,000) (NORMAL); PLATELET MORPHOLOGY NORMAL APPEARANCE (NORMAL); RBC MORPHOLOGY (MULTIPLE) NORMAL APPEARANCE (NORMAL)
[2022-10-09] MEDS: CHERRY SYRUP 10 ML UDC PO SCH ×2 (17:22→17:38)
--- NOTE | 2022-10-09 19:26 | PROVIDER PROGRESS NOTE ---
Subjective - Prog Note Date Prog Note Date: 10/09/22 Prog Note Time: 19:24 Objective - Vital Signs/Intake & Output Reviewed Vital Signs: Yes Vital Signs: Vital Signs x48h Temp Pulse Pulse Resp BP BP 10/09/22 17:00 95 20 115/68 10/09/22 14:56 97.2 F L 104 H 24 112/67 10/09/22 13:53 97.9 F 80 20 102/59 L 10/09/22 12:00 98.1 F 62 18 128/62 Intake & Output: Intake & Output 10/06/22 10/07/22 10/08/22 10/09/22 23:59 23:59 23:59 23:59 Intake Total 1000 Output Total 1740 Balance -740 - Objective General Appearance: positive: No acute distress Abdomen: positive: Other (FFBU) - Lab Results Fish Bones: 10/09/22 16:37 Other Labs: Lab Results x24hrs 10/09/22 10/09/22 10/09/22 Range/Units 16:37 07:13 07:01 WBC 22.9 H 15.3 H (4.8-10.8) x10^3/uL RBC 3.85 L 4.33 (4.20-5.40) 10^6/uL Hgb 11.2 L 12.6 (12.0-16.0) g/dL Hct 34.0 L 37.6 (37.0-47.0) % MCV 88.3 86.8 (81.0-99.0) fL MCH 29.1 29.1 (27.0-31.0) pg MCHC 32.9 33.5 (32.0-36.0) g/dL RDW 13.6 13.5 (12.0-15.0) % Plt Count 233 215 (130-450) 10^3/uL MPV 10.3 10.5 (7.9-10.8) fL Neut # (Auto) Not Reportable 10.2 H (1.5-6.6) 10^3/uL Lymph # (Auto) Not Reportable 3.1 (1.5-3.5) 10^3/uL [place] # (Auto) Not Reportable 1.2 H (0.0-1.0) 10^3/uL Eos # (Auto) Not Reportable 0.5 (0.0-0.7) 10^3/uL Baso # (Auto) Not Reportable 0.0 (0.0-0.1) 10^3/uL Absolute Nucleated RBC Not Reportable 0.00 x10^3/uL Total Counted 100 Band Neuts % (Manual) 2 (0 - 10) % Abnorm Lymph % (Manual) 0 % Nucleated RBC % Not Reportable 0.0 /100WBC Neutrophils # (Manual) 17.6 H (1.5-6.6) 10^3/uL Lymphocytes # (Manual) 3.4 (1.5-3.5) 10^3/uL Monocytes # (Manual) 1.6 H (0.0-1.0) 10^3/uL Eosinophils # (Manual) 0.2 (0-0.7) 10^3/uL Basophils # (Manual) 0.0 (0-0.1) 10^3/uL Differential Comment MANUAL DIFFERENTIAL Platelet Estimate NORMAL (130-450,000) (NORMAL) Platelet Morphology NORMAL APPEARANCE (NORMAL) RBC Morph Micro Appear NORMAL APPEARANCE (NORMAL) Blood Type A POSITIVE Antibody Screen NEGATIVE Assessment/Plan - Problem List (1) hemorrhage Impression: Bakri balloon removed FFBU continue to monitor
[2022-10-09] MEDS: SIMETHICONE CHEW 80 MG TABLET PO PRN (21:58)
[2022-10-10] MEDS: IBUPROFEN 600 MG TABLET PO SCH ×3 (00:28→12:02)
[2022-10-10] MEDS: METHYLERGONOVINE 0.2 MG/ML VIAL PO SCH ×2 (02:11→09:52)
[2022-10-10] MEDS: oxyCODONE 5 MG TABLET PO PRN ×3 (02:11→10:52)
[2022-10-10] MEDS: CHERRY SYRUP 10 ML UDC PO SCH ×2 (02:11→09:53)
[2022-10-10 06:07] LABS: HCT - HEMATOCRIT 33.6 % (37.0-47.0); HGB - HEMOGLOBIN 11.1 g/dL (12.0-16.0); MEAN CORPUSCULAR HEMOGLOBIN 29.4 pg (27.0-31.0); MEAN CORPUSCULAR VOLUME 89.1 fL (81.0-99.0); MEAN PLATELET VOLUME 10.7 fL (7.9-10.8); RED BLOOD COUNT 3.77 10^6/uL (4.20-5.40); RED CELL DISTRIBUTION WIDTH 13.8 % (12.0-15.0); WHITE BLOOD COUNT 21.4 x10^3/uL (4.8-10.8)
[2022-10-10] MEDS: ACETAMINOPHEN 500 MG TABLET PO SCH (06:13)
[2022-10-10] MEDS: SIMETHICONE CHEW 80 MG TABLET PO PRN ×2 (06:26→12:04)
[2022-10-10] MEDS: DOCUSATE SODIUM 100 MG CAPSULE PO SCH ×2 (06:26→08:46)
--- NOTE | 2022-10-10 09:50 | PROVIDER PROGRESS NOTE ---
Objective - Vital Signs/Intake & Output Vital Signs: Vital Signs x48h Temp Pulse Resp BP Pulse Ox 10/10/22 08:51 18 96/57 L 10/10/22 06:10 97.9 F 89 18 113/68 100 10/10/22 02:00 98.1 F 90 16 89/53 L 98 Intake & Output: Intake & Output 10/07/22 10/08/22 10/09/22 10/10/22 23:59 23:59 23:59 23:59 Intake Total 1000 100 Output Total 1740 Balance -740 100 - Lab Results Fish Bones: 10/10/22 05:55 Other Labs: Lab Results x24hrs 10/10/22 10/09/22 Range/Units 05:55 16:37 WBC 21.4 H 22.9 H (4.8-10.8) x10^3/uL RBC 3.77 L 3.85 L (4.20-5.40) 10^6/uL Hgb 11.1 L 11.2 L (12.0-16.0) g/dL Hct 33.6 L 34.0 L (37.0-47.0) % MCV 89.1 88.3 (81.0-99.0) fL MCH 29.4 29.1 (27.0-31.0) pg MCHC 33.0 32.9 (32.0-36.0) g/dL RDW 13.8 13.6 (12.0-15.0) % Plt Count 235 233 (130-450) 10^3/uL MPV 10.7 10.3 (7.9-10.8) fL Neut # (Auto) Not Reportable Lymph # (Auto) Not Reportable [place] # (Auto) Not Reportable Eos # (Auto) Not Reportable Baso # (Auto) Not Reportable Absolute Nucleated RBC Not Reportable Total Counted 100 Band Neuts % (Manual) 2 (0 - 10) % Abnorm Lymph % (Manual) 0 % Nucleated RBC % Not Reportable Neutrophils # (Manual) 17.6 H (1.5-6.6) 10^3/uL Lymphocytes # (Manual) 3.4 (1.5-3.5) 10^3/uL Monocytes # (Manual) 1.6 H (0.0-1.0) 10^3/uL Eosinophils # (Manual) 0.2 (0-0.7) 10^3/uL Basophils # (Manual) 0.0 (0-0.1) 10^3/uL Differential Comment MANUAL DIFFERENTIAL Platelet Estimate NORMAL (130-450,000) (NORMAL) Platelet Morphology NORMAL APPEARANCE (NORMAL) RBC Morph Micro Appear NORMAL APPEARANCE (NORMAL)
[2022-10-10 12:07] VITALS: BP 104/59
--- NOTE | 2022-10-10 13:36 | DISCHARGE SUMMARY ---
Discharge Summary Admit Date: 10/09/22 Discharge Date: 10/10/22 Discharging Provider: Ramos Huynh MD Code Status: Attempt Resuscitation Condition at Discharge: Good Discharge Disposition: 01 Home, Self Care - DIAGNOSES Admission Diagnoses: 38 weeks gestation Previous low-transverse section x2 SROM Discharge Diagnoses with Status of Each Condition: 38 weeks gestation: Delivered Previous low-transverse section x2: Delivered SROM: Delivered Status post repeat low-transverse section Delivery of live stevenson hemorrhage: Stable - HPI History of Present Illness: Subjective Patient reports she is doing well. Lochia appropriate. Denies heavy bleeding. Ambulating. Pelvic and abdominal pain well-controlled. Tolerating oral intake. Diet: Regular. Voiding without difficulty. Passing flatus. Denies BM. Patient is bonding with baby in room Breast feeding going well. Denies feeling lightheaded, dizzy or excessively fatigued. Objective General: Alert, oriented, no apparent distress. Cardiovascular: Regular rate. Regular rhythm. Lungs: No increased work of breathing. Abdomen: Uterus firm. Below umbilicus. No guarding or rebound. Extremities: No pain on palpation. No cords palpated. Distal pulses intact. Incision: Clean, dry, and intact. Steri-Strips placed on incision - HOSPITAL COURSE Hospital Course: Patient was a 32-year-old -0-3-2 at 38 weeks 6 days gestation who presented with spontaneous rupture of membranes the setting of 2 previous sections. She went back for a section and during the section had a hemorrhage. This required Methergine, Hemabate, Bakri balloon. Pocket was left in for 12 hours. After this was removed, patient had a stable hemoglobin and hematocrit, she had a minimal out of bleeding. Uterus was firm. She desired to go home on day 1. We discussed staying additional night, but she was eager to leave. Patient will follow-up in clinic and return if bleeding increases. - ALLERGIES Allergies/Adverse Reactions: Allergies Allergy/AdvReac Type Severity Reaction Status Date / Time No Known Drug Allergies Allergy Verified 12/11/15 18:02 - MEDICATIONS Home Medications: Ambulatory Orders Medication Instructions Recorded Confirmed Pnv95/Iron Fum/Folic Acid 1 tab PO DAILY 12/11/15 [ Caplet] Sertraline HCl [Zoloft] 200 mg PO DAILY 08/01/16 05/25/21 Acetaminophen [Acetaminophen Extra 1,000 mg PO Q8H PRN #60 tablet 10/10/22 Strength] Docusate Sodium 100Mg Capsule 100 - 200 mg PO BID PRN #60 cap 10/10/22 [Colace 100Mg Capsule] Ibuprofen [Motrin] 600 mg PO Q6H PRN #30 tab 10/10/22 oxyCODONE [Roxicodone] 5 mg PO Q4H PRN #20 tablet 10/10/22 - LABS Result Diagrams: 10/10/22 05:55 - FOLLOW UP Follow Up: With Ramos Huynh MD in 1 week. - TIME SPENT Time Spent in Discharge (Minutes): 30
--- NOTE | 2022-10-10 13:37 | Discharge Plan ---
Discharge Plan Problem Reviewed?: Yes Disposition: Home, Self Care Condition: Good Prescriptions: Acetaminophen [Acetaminophen Extra Strength] 1,000 mg PO Q8H PRN #60 tablet PRN Reason: Pain Docusate Sodium 100Mg Capsule [Colace 100Mg Capsule] 100 - 200 mg PO BID PRN #60 cap PRN Reason: Constipation Ibuprofen [Motrin] 600 mg PO Q6H PRN #30 tab PRN Reason: Pain oxyCODONE [Roxicodone] 5 mg PO Q4H PRN #20 tablet PRN Reason: Severe Pain Diet: Regular Instruction Topics: C Section Dc No Smoking: If you smoke, Please STOP! Call for help. Follow-up with: ETHEL GAMINO MD [Primary Care Provider] - Ramos Huynh MD [Provider Admit Priv/Credential] -
--- NOTE | 2022-10-10 15:07 | Labor Flowsheet ---
Labor Flowsheet Datetime Report Generated by CPN: 10/10/2022 15:07 Datetime: 10/09/2022 17:24 VAGINAL EXAM Membranes Ruptured Date/Time: 10/09/2022 06:05 Membranes Rupture Method: Spontaneous
== END 2022-10-10 14:20 | disposition home or self-care (01) | DRG 787 ==
LOC: WFO 06:26 → FBP 06:28 → WFO 06:41 → FBP 06:42
PROVIDERS: ADMIT Obstetrics & Gynecology Obstetrics; ATTEND Obstetrics & Gynecology
PROC: 0W3R7ZZ Control Bleeding in Genitourinary Tract, Via Natural or Artificial Opening (ICD-10-PCS; 2022-10-09)
PROC: 10D00Z1 Extraction of Products of Conception, Low, Open Approach (ICD-10-PCS; principal; 2022-10-09 07:30)
DX: O34.211 Maternal care for low transverse scar from previous cesarean delivery (principal); O72.1 Other immediate postpartum hemorrhage; N85.8 Other specified noninflammatory disorders of uterus; Z37.0 Single live birth; O99.824 Streptococcus B carrier state complicating childbirth; O32.8XX0 Maternal care for other malpresentation of fetus, not applicable or unspecified; O77.0 Labor and delivery complicated by meconium in amniotic fluid; Z3A.38 38 weeks gestation of pregnancy
CPT/HCPCS: 36415; 85025; 85027; 86850; 86900; 86901; A9270; J1200; J2210; J2274; J7120; 99215